=== PATIENT | male | born 1975 | race Caucasian/White ===

== ENCOUNTER 2021-05-11 23:17 | Inpatient (IN) ==
[2021-05-11] MEDS ORDERED: dexAMETHasone**PF** 10 MG/ML VIAL IV ONE (23:30)
[2021-05-11] MEDS ORDERED: SODIUM CHLORIDE 0.9% 1000ML 1,000 ML IV ONE (23:31)
[2021-05-11] MEDS ORDERED: ACETAMINOPHEN 500 MG TAB PO STA (23:31)
[2021-05-11] MEDS ORDERED: IBUPROFEN 800 MG TAB PO STA (23:47)
[2021-05-12 00:17] LABS: Hemoglobin 15.2 g/dL (14.0-18.0); Immature Granulocytes # (auto) 0.02 K/uL (0.00-0.02); Immature Granulocytes % (auto) 0.5 %; Lymphocytes # (auto) 0.44 K/uL (1.2-3.4); Lymphocytes % (auto) 11.6 %; Mean Corpuscular Hemoglobin 30.3 pg (25-34); Mean Corpuscular Hgb Conc 33.8 g/dL (32-36); Mean Corpuscular Volume 89.6 fL (80-100); Mean Platelet Volume 9.9 fL (7.4-10.4); Monocytes # (auto) 0.19 K/uL (0.11-0.59); Neutrophils # (auto) 3.14 K/uL (1.4-6.5); Neutrophils % (auto) 82.9 %; Platelet Count 146 K/uL (130-400); RDW Coefficient of Variation 12.4 % (11.5-14.5); RDW Standard Deviation 40.7 fL (36.4-46.3); Red Blood Count 5.02 M/uL (4.7-6.1); White Blood Count 3.79 K/uL (4.8-10.8)
[2021-05-12 00:29] LABS: INR 1.1 (0.9-1.1); Partial Thromboplastin Ratio 1.2; Partial Thromboplastin Time 30.8 Seconds (21.0-31.0); Prothrombin Time 11.4 Seconds (9.0-12.0)
[2021-05-12 00:49] LABS: Alanine Aminotransferase 53 U/L (12-78); Albumin Globulin Ratio 0.6 (0.9-2); Albumin Level 2.4 gm/dl (3.4-5.0); Alkaline Phosphatase 76 U/L (45-117); Aspartate Aminotransferase 122 U/L (15-37); BUN Creatinine Ratio 17.8 (10-20); Bilirubin,Total 0.5 mg/dl (0.2-1); Blood Urea Nitrogen 16 mg/dl (7-18); Calcium 8.2 mg/dl (8.5-10.1); Carbon Dioxide 26 mmol/L (21-32); Chloride 102 mmol/L (98-107); Est GFR (Non-African American) 100.1 ml/min; Globulin 4.2 gm/dl (2.5-4.0); Glucose 145 mg/dl (70-99); Magnesium 2.2 mg/dl (1.8-2.4); Potassium 3.5 mmol/L (3.5-5.1); Sodium 134 mmol/L (136-145); Total Protein 6.6 gm/dl (6.4-8.2); Troponin I < 0.015 ng/ml (0-0.045)
[2021-05-12] MEDS ORDERED: XOPENEX/ATROVENT 1.25mg/0.5MG NEB COMBO NEB ONE (01:04)
[2021-05-12] MEDS ORDERED: PATIENT'S HEIGHT AND/OR WEIGHT NEEDED STA (01:10)
[2021-05-12] MEDS ORDERED: LEVALBUTEROL 1.25MG/0.5ML NEB INH PRN (01:15)
[2021-05-12] MEDS ORDERED: dexAMETHasone 4 MG in SYRINGE 0 ML IV ONE (01:15)
[2021-05-12] MEDS ORDERED: IPRATROPIUM BROMIDE NEB SOLN 0.02% 2.5 ML VIAL INH PRN ×2 (01:15→05:29)
--- NOTE | 2021-05-12 01:18 | History & Physical Report ---
Date of Service May 12, 2021 Assessment & Plan (1) Pneumonia due to COVID-19 virus: Plan: Pneumonia due to COVID-19 virus with hypoxia/acute respiratory failure with hypoxia- Given dexamethasone 6 mg IV by the ED, will add additional 4 mg IV for total 10 mg IV in the ED Dexamethasone 6 mg IV every morning Xopenex/ Atrovent-nebulizers every 6 hours while awake and every 2 hours as needed Remdesivir IV per protocol Ceftriaxone 2 g IV daily Azithromycin 500 mg IV daily Presently on 10 L oxygen mask with pulse ox 89% and PO2 59% on ABG We will give a nebulizer treatment now, and changed to heated high flow (2) Hypoxia: Plan: See above (3) Acute respiratory failure with hypoxia: Plan: See above (4) Hypertension: Plan: Hold lisinopril History of Present Illness Chief Complaint: The patient presents to the emergency department with worsening shortness of breath and dyspnea on exertion, after being seen in the ED on 05/08, having been recently diagnosed with Covid 19 pneumonia, and refused admission at that time. Primary Care Provider: NO PCP The patient is a 46-year-old male with a past medical history including hypertension, who presents to the emergency department with symptoms as noted above. His symptoms initially again on May 04. Chest x-ray is consistent with multifocal pneumonia abnormal laboratories: AST 122, platelets 146, glucose 145. Temperature 39.1 Chest x-ray consistent with multifocal pneumonia From the ED patient received the following: Dexamethasone 6 mg IV, Tylenol 1 g p.o. Allergies Allergy/AdvReac Type Severity Reaction Status Date / Time codeine Allergy Hives Verified 05/12/21 00:48 oxycodone Allergy Hives Verified 05/12/21 00:48 Home Medications Medication Instructions Recorded Confirmed Type ibuprofen 200 mg tablet 800 mg PO Q8 PRN 05/12/21 05/12/21 History lisinopril 10 mg tablet 10 mg PO DAILY 05/12/21 05/12/21 History Past Med/Surg History Medical History (Updated 05/12/21 @ 02:20 by Marco A Kemp MD) Hypertension No acute medical problems Surgical History No pertinent past surgical history Social History Smoking Status: Never smoker Preferred Language: Persian Feels Safe at Home: Yes Review of Systems Review of Systems: The patient denies chest pain, palpitations, lower extremity swelling, sore throat, fevers, chills, sweats, nausea, vomiting, naya rrhea , constipation, abdominal pain, pelvic pain, blood in urine or stool, dysuria, urinary frequency or urgency, memory loss, loss of consciousness, rash, abnormal bruising or bleeding, imbalance, focal weakness, numbness or tingling in arms or legs, generalized arthralgias or myalgias, back or neck pain, or night sweats. The review of systems is otherwise negative other than for that already noted above, and at least 10 systems have been reviewed. Physical Exam Physical Exam: The patient is awake, alert and oriented 3, well developed and well nourished, normocephalic and atraumatic, lying in bed and in moderate acute respiratory distress on 10 L oxygen mask HEENT--PERRL, EOMI, mucous membranes and oropharynx normal Neck--supple. No JVD. No bruits. Thyroid normal, trachea midline, no adenopathy. Heart--normal S1 and S2. No murmurs, rubs or gallops. Lungs--coarse breath sounds bilaterally. Moderate respiratory distress with accessory muscle use. Abdomen--normal bowel sounds and soft. Nontender. Nondistended, no hernias or masses, no organomegaly. Extremities--no cyanosis or clubbing. No edema. Dermatologic--normal skin turgor, normal color, no abnormal lymph nodes, no rash. Neurologic--cranial nerves II through XII grossly intact. Rheumatologic--normal range of motion. Psychiatric--normal affect. Results & Data Results & Data ([facility]) Vital Signs (Past 12 Hours) Vital Signs Temp Pulse Resp BP Pulse Ox 05/11/21 23:24 39.1 C H 142 H 30 H 131/88 78 L Laboratory Results Laboratory Results WBC 3.79 K/uL (4.8-10.8) L 05/12/21 00:03 RBC 5.02 M/uL (4.7-6.1) 05/12/21 00:03 Hgb 15.2 g/dL (14.0-18.0) 05/12/21 00:03 Hct 45.0 % (42-52) 05/12/21 00:03 MCV 89.6 fL (80-100) 05/12/21 00:03 MCH 30.3 pg (25-34) 05/12/21 00:03 MCHC 33.8 g/dL (32-36) 05/12/21 00:03 RDW Std Deviation 40.7 fL (36.4-46.3) 05/12/21 00:03 RDW Coeff of Tiffanie 12.4 % (11.5-14.5) 05/12/21 00:03 Plt Count 146 K/uL (130-400) 05/12/21 00:03 MPV 9.9 fL (7.4-10.4) 05/12/21 00:03 Immature Gran % (Auto) 0.5 % 05/12/21 00:03 Neut % (Auto) 82.9 % 05/12/21 00:03 Lymph % (Auto) 11.6 % 05/12/21 00:03 [place] % (Auto) 5.0 % 05/12/21 00:03 Eos % (Auto) 0.0 % 05/12/21 00:03 Baso % (Auto) 0.0 % 05/12/21 00:03 Neut # (Auto) 3.14 K/uL (1.4-6.5) 05/12/21 00:03 Lymph # (Auto) 0.44 K/uL (1.2-3.4) L 05/12/21 00:03 [place] # (Auto) 0.19 K/uL (0.11-0.59) 05/12/21 00:03 Eos # (Auto) 0.00 K/uL (0-0.5) 05/12/21 00:03 Baso # (Auto) 0.00 K/uL (0-0.2) 05/12/21 00:03 Immature Gran # (Auto) 0.02 K/uL (0.00-0.02) 05/12/21 00:03 PT 11.4 Seconds (9.0-12.0) 05/12/21 00:03 INR 1.1 (0.9-1.1) 05/12/21 00:03 APTT 30.8 Seconds (21.0-31.0) 05/12/21 00:03 PTT Ratio 1.2 05/12/21 00:03 Sodium 134 mmol/L (136-145) L 05/12/21 00:03 Potassium 3.5 mmol/L (3.5-5.1) 05/12/21 00:03 Chloride 102 mmol/L (98-107) 05/12/21 00:03 Carbon Dioxide 26 mmol/L (21-32) 05/12/21 00:03 Anion Gap 6.0 (3-11) 05/12/21 00:03 BUN 16 mg/dl (7-18) 05/12/21 00:03 Creatinine 0.92 mg/dl (0.6-1.4) 05/12/21 00:03 Est Cr Clr Drug Dosing Not Reportable 05/12/21 00:03 Est GFR ( Amer) 116.0 ml/min 05/12/21 00:03 Est GFR (Non-Af Amer) 100.1 ml/min 05/12/21 00:03 BUN/Creatinine Ratio 17.8 (10-20) 05/12/21 00:03 Glucose 145 mg/dl (70-99) H 05/12/21 00:03 Lactate 1.5 mmol/L (0.4-2.0) 05/12/21 00:03 Calcium 8.2 mg/dl (8.5-10.1) L 05/12/21 00:03 Magnesium 2.2 mg/dl (1.8-2.4) 05/12/21 00:03 Total Bilirubin 0.5 mg/dl (0.2-1) 05/12/21 00:03 AST 122 U/L (15-37) H 05/12/21 00:03 ALT 53 U/L (12-78) 05/12/21 00:03 Alkaline Phosphatase 76 U/L (45-117) 05/12/21 00:03 Troponin I < 0.015 ng/ml (0-0.045) 05/12/21 00:03 Total Protein 6.6 gm/dl (6.4-8.2) 05/12/21 00:03 Albumin 2.4 gm/dl (3.4-5.0) L 05/12/21 00:03 Globulin 4.2 gm/dl (2.5-4.0) H 05/12/21 00:03 Albumin/Globulin Ratio 0.6 (0.9-2) L 05/12/21 00:03 Procalcitonin 0.09 ng/ml (0-0.5) 05/12/21 00:03 Specimen Hemolysis 05/12/21 00:03 Code Status & VTE Plan Code Status Full code VTE Prophylaxis Plan VTE Prophylaxis will be ordered: Yes PG Care Time/CCT Total # of Minutes Spent Total Time Spent with Patient: Total time spent is greater than 50% in coordination of care (as documented) at patient's floor/unit and/or counseling patient: Coding Level of Care Code 25283 Initial Inpt Care Lvl 3 Diagnoses Pneumonia due to COVID-19 virus U07.1; J12.82 Hypoxia R09.02 Acute respiratory failure with hypoxia J96.01 Hypertension I10
[2021-05-12] MEDS ORDERED: REMDESIVIR 200 MG in SODIUM CHLORIDE 0.9% 210 ML IV ONE (01:30)
[2021-05-12] MEDS ORDERED: cefTRIAXone SODIUM 2,000 MG in DEXTROSE 5% 50 ML IV STA (01:56)
[2021-05-12] MEDS ORDERED: AZITHROMYCIN 500 MG in DEXTROSE 5% 250 ML IV ONE (02:30)
--- NOTE | 2021-05-12 02:57 | Emergency Department Note ---
History of Present Illness General Chief complaint: Shortness of Breath/Dyspnea Stated complaint: COVID+, PULSE OX 72, SOB History of Present Illness Maximum Pain Intensity: 7 This 46-year-old unvaccinated for Covid who tested positive on the of this month presents to the ER complaining of worsening breathing and low pulse ox who was seen by myself a few days ago Location: Generalized Quality: Hard to breathe Severity: Moderate Duration: Past week Timing: Started May 04 Context: Patient's pulse ox was in the 70s at home and came in Modifying factors: better with oxygen; worse with activity Patient states he feels miserable. Patient complains of feeling short of breath body aches and pains and generalized illness. Patient denies abdominal pain, vomiting, diarrhea. Home Medications Medication Instructions Recorded Confirmed Type ibuprofen 200 mg tablet 800 mg PO Q8 PRN 05/12/21 05/12/21 History lisinopril 10 mg tablet 10 mg PO DAILY 05/12/21 05/12/21 History Allergies Allergy/AdvReac Type Severity Reaction Status Date / Time codeine Allergy Hives Verified 05/12/21 00:48 oxycodone Allergy Hives Verified 05/12/21 00:48 Past Med/Surg History Medical History Hypertension No acute medical problems Surgical History No pertinent past surgical history Social History Smoking Status: Never smoker Preferred Language: Turkish Feels Safe at Home: Yes Review of Systems A total of 10 systems reviewed and were otherwise negative Physical Exam Vital Signs Vital Signs - 24 hr 05/11/21 23:24 05/11/21 23:47 05/12/21 00:16 Temperature 39.1 C H 38.2 C H Temperature Source Temporal Artery Scan Oral Pulse Rate 142 H Respiratory Rate 30 H Respiratory Effort / Characteristics Non-Labored Spontaneous Respiratory Depth Normal Respiratory Pattern Regular Blood Pressure 131/88 Blood Pressure Mean 102 Blood Pressure Position Sitting Pulse Oximetry 78 L Oxygen Delivery Method Room Air Oxymask Oxygen Flow Rate 10 Fraction of Inspired Oxygen Sepsis Recent Fever Within 48 Hours Yes Sepsis New/Unexplained Change in Mental Status N/A Sepsis Action Taken by Nursing Physician Notified 05/12/21 01:34 05/12/21 01:42 05/12/21 02:06 Temperature Temperature Source Pulse Rate 124 H Respiratory Rate 22 Respiratory Effort / Characteristics Spontaneous Short of Breath Spontaneous Short of Breath Respiratory Depth Respiratory Pattern Blood Pressure Blood Pressure Mean Blood Pressure Position Pulse Oximetry 91 95 94 Oxygen Delivery Method Oxymask High Flow Nasal Cannula Oxymask Oxygen Flow Rate 10 40 10 Fraction of Inspired Oxygen 90 Sepsis Recent Fever Within 48 Hours Sepsis New/Unexplained Change in Mental Status Sepsis Action Taken by Nursing 05/12/21 02:07 Temperature Temperature Source Pulse Rate Respiratory Rate Respiratory Effort / Characteristics Non-Labored Respiratory Depth Respiratory Pattern Blood Pressure Blood Pressure Mean Blood Pressure Position Pulse Oximetry 94 Oxygen Delivery Method Oxymask Oxygen Flow Rate 10 Fraction of Inspired Oxygen Sepsis Recent Fever Within 48 Hours Sepsis New/Unexplained Change in Mental Status Sepsis Action Taken by Nursing VITALS: Vitals are noted on the nurse's note and reviewed by myself. Vital signs hypoxic on room air and patient was placed on nasal cannula and then Lars mask GENERAL: White male ill-appearing working to breathe sats in the 70s, SKIN: The skin was without rashes, erythema, edema, or bruising. There is no tenting of the skin. Capillary reflex less than 2 seconds. HEAD: Normocephalic atraumatic. EARS: External auditory canals clear, tympanic membranes pearly ramires without erythema or effusion bilaterally. EYES: Pupils equal round and reactive to light and accommodation. Conjunctivae without injection, sclerae without icterus. Extraocular movements intact. NOSE: Patent, turbinates without inflammation or discharge. No sinus tenderness. MOUTH: Mucous membranes mildly dry pharynx without erythema or exudate. Uvula midline. Airway patent. Tongue does not deviate. NECK: Supple without nuchal rigidity. No lymphadenopathy. No thyromegaly. Cervical spine is nontender. No JVD. HEART: Regular rate and rhythm LUNGS: Mild diffuse end expiratory wheezes, No retractions or accessory muscle use. ABDOMEN: Positive bowel sounds x 4. Normal tympanic percussion. Soft, nontender, without masses or organomegaly. Stevens sign negative. No guarding or rebound tenderness. No CVA tenderness MUSCULOSKELETAL: No muscle atrophy, erythema, or edema noted. NEURO: Patient was alert and oriented to person place and time. Normal sensation to light and sharp touch. No focal neurological deficits. Course Administered Medications Remdesivir 200 mg/ Sodium (Chloride) 250 mls @ 125 mls/hr IV ONE ONE; Protocol Stop: 05/12/21 03:29 Last Admin: 05/12/21 01:29 Dose: 125 mls/hr Documented by: [id number] Discontinued Medications Acetaminophen (Acetaminophen 500 Mg Tab) 1,000 mg PO NOW STA Stop: 05/11/21 23:32 Last Admin: 05/12/21 01:25 Dose: 1,000 mg Documented by: [id number] Dexamethasone Sodium Phosphate (DexamethasonePf 10 Mg/Ml Vial) 6 mg IV NOW ONE Stop: 05/11/21 23:31 Last Admin: 05/12/21 00:34 Dose: 6 mg Documented by: [id number] Sodium Chloride (Nss 1000ml) 1,000 mls @ 999 mls/hr IV .Q1H1M ONE Stop: 05/12/21 00:31 Last Admin: 05/12/21 00:34 Dose: 999 mls/hr Documented by: [id number] Dexamethasone 4 mg/ Syringe 1 mls @ 1 mls/min IV ONE ONE Stop: 05/12/21 01:16 Last Admin: 05/12/21 01:25 Dose: 1 mls/min Documented by: [id number] Ceftriaxone Sodium 2,000 mg/ (Dextrose) 70 mls @ 100 mls/hr IV NOW STA; Protocol Stop: 05/12/21 02:37 Last Admin: 05/12/21 02:36 Dose: 100 mls/hr Documented by: [id number] Ibuprofen (Ibuprofen 800 Mg Tab) 800 mg PO NOW STA Stop: 05/11/21 23:48 Last Admin: 05/12/21 01:25 Dose: 800 mg Documented by: [id number] Miscellaneous (Xopenex/Atrovent 1.25mg/0.5mg Neb Combo) 1 ea NEB ONE ONE Stop: 05/12/21 01:05 Last Admin: 05/12/21 01:32 Dose: 1 ea Documented by: [id number] Miscellaneous (Patient's Height And/Or Weight Needed) 1 ea N/A NOW STA Stop: 05/12/21 01:11 Last Admin: 05/12/21 01:38 Dose: 1 ea Documented by: [id number] Medical Decision Making Medical Records Attestation: I reviewed the patient's medical records. Home Medications Current Medication List: was personally reviewed by me Laboratory Data Attestation: I reviewed the patient's lab results. Result diagrams: 05/12/21 00:03 05/12/21 00:03 Lab Results 05/12/21 05/12/21 05/12/21 Range/Units 00:03 00:03 00:03 WBC 3.79 L (4.8-10.8) K/uL RBC 5.02 (4.7-6.1) M/uL Hgb 15.2 (14.0-18.0) g/dL Hct 45.0 (42-52) % MCV 89.6 (80-100) fL MCH 30.3 (25-34) pg MCHC 33.8 (32-36) g/dL RDW Std Deviation 40.7 (36.4-46.3) fL RDW Coeff of Tiffanie 12.4 (11.5-14.5) % Plt Count 146 (130-400) K/uL MPV 9.9 (7.4-10.4) fL Immature Gran % (Auto) 0.5 % Neut % (Auto) 82.9 % Lymph % (Auto) 11.6 % [place] % (Auto) 5.0 % Eos % (Auto) 0.0 % Baso % (Auto) 0.0 % Neut # (Auto) 3.14 (1.4-6.5) K/uL Lymph # (Auto) 0.44 L (1.2-3.4) K/uL [place] # (Auto) 0.19 (0.11-0.59) K/uL Eos # (Auto) 0.00 (0-0.5) K/uL Baso # (Auto) 0.00 (0-0.2) K/uL Immature Gran # (Auto) 0.02 (0.00-0.02) K/uL PT 11.4 (9.0-12.0) Seconds INR 1.1 (0.9-1.1) APTT 30.8 (21.0-31.0) Seconds PTT Ratio 1.2 Sodium 134 L (136-145) mmol/L Potassium 3.5 (3.5-5.1) mmol/L Chloride 102 (98-107) mmol/L Carbon Dioxide 26 (21-32) mmol/L Anion Gap 6.0 (3-11) BUN 16 (7-18) mg/dl Creatinine 0.92 (0.6-1.4) mg/dl Est Cr Clr Drug Dosing Not Reportable Est GFR ( Amer) 116.0 ml/min Est GFR (Non-Af Amer) 100.1 ml/min BUN/Creatinine Ratio 17.8 (10-20) Glucose 145 H (70-99) mg/dl Lactate (0.4-2.0) mmol/L Calcium 8.2 L (8.5-10.1) mg/dl Magnesium 2.2 (1.8-2.4) mg/dl Total Bilirubin 0.5 (0.2-1) mg/dl AST 122 H (15-37) U/L ALT 53 (12-78) U/L Alkaline Phosphatase 76 (45-117) U/L Troponin I < 0.015 (0-0.045) ng/ml Total Protein 6.6 (6.4-8.2) gm/dl Albumin 2.4 L (3.4-5.0) gm/dl Globulin 4.2 H (2.5-4.0) gm/dl Albumin/Globulin Ratio 0.6 L (0.9-2) Procalcitonin (0-0.5) ng/ml Specimen Hemolysis 05/12/21 05/12/21 Range/Units 00:03 00:03 WBC (4.8-10.8) K/uL RBC (4.7-6.1) M/uL Hgb (14.0-18.0) g/dL Hct (42-52) % MCV (80-100) fL MCH (25-34) pg MCHC (32-36) g/dL RDW Std Deviation (36.4-46.3) fL RDW Coeff of Tiffanie (11.5-14.5) % Plt Count (130-400) K/uL MPV (7.4-10.4) fL Immature Gran % (Auto) % Neut % (Auto) % Lymph % (Auto) % [place] % (Auto) % Eos % (Auto) % Baso % (Auto) % Neut # (Auto) (1.4-6.5) K/uL Lymph # (Auto) (1.2-3.4) K/uL [place] # (Auto) (0.11-0.59) K/uL Eos # (Auto) (0-0.5) K/uL Baso # (Auto) (0-0.2) K/uL Immature Gran # (Auto) (0.00-0.02) K/uL PT (9.0-12.0) Seconds INR (0.9-1.1) APTT (21.0-31.0) Seconds PTT Ratio Sodium (136-145) mmol/L Potassium (3.5-5.1) mmol/L Chloride (98-107) mmol/L Carbon Dioxide (21-32) mmol/L Anion Gap (3-11) BUN (7-18) mg/dl Creatinine (0.6-1.4) mg/dl Est Cr Clr Drug Dosing Est GFR ( Amer) ml/min Est GFR (Non-Af Amer) ml/min BUN/Creatinine Ratio (10-20) Glucose (70-99) mg/dl Lactate 1.5 (0.4-2.0) mmol/L Calcium (8.5-10.1) mg/dl Magnesium (1.8-2.4) mg/dl Total Bilirubin (0.2-1) mg/dl AST (15-37) U/L ALT (12-78) U/L Alkaline Phosphatase (45-117) U/L Troponin I (0-0.045) ng/ml Total Protein (6.4-8.2) gm/dl Albumin (3.4-5.0) gm/dl Globulin (2.5-4.0) gm/dl Albumin/Globulin Ratio (0.9-2) Procalcitonin 0.09 (0-0.5) ng/ml Specimen Hemolysis Imaging Data Attestation: I personally reviewed and interpreted this imaging study as follows: MDM Narrative Prior records/ancillary studies reviewed. Triage Nursing notes reviewed. Additional history obtained from nursing. The patient's history was concerning for cold symptoms Differential diagnosis: Etiologies such as viral syndrome, pharyngitis, Covid, sepsis, bacteremia, bronchitis, allergies, otitis, pneumonia, influenza, as well as others were entertained. ER treatment provided: Oxygen, Decadron On reassessment the patient felt better. Diagnostics interpreted by me: The labs revealed leukopenia consistent with known Covid infection, VBG was reviewed Imaging studies: Chest x-ray concerning for multiple patchy infiltrates concerning Covid pneumonia per my interpretation Consultation: A consultation was placed with hospitalist. Medicine will admit. This appears to be consistent with Covid pneumonia who is hypoxic. Patient was given Decadron. He was placed on oxygen. He was given Tylenol Motrin. Medicine was consulted. He will be admitted. He was reassessed multiple times. By the evaluation outlined above emergent etiologies such as otitis, meningitis, urinary tract infection, sepsis, bacteremia, as well as others were deemed relatively unlikely. The pt informed about the findings as listed above. All questions were answered and pleased with the treatment. The chart was completed utilizing [employer] Speech voice recognition software. Grammatical errors, random word insertions, pronoun errors, and incomplete sentences are an occassional consequence of this system due to software limitations, ambient noise, and hardware issues. Any formal questions or concerns about the content, text, or information contained within the body of this dictation should be directly addressed to the physician perioperative assistant for clarification. Impression & Plan COVID-19, Hypoxia, Acute respiratory failure with hypoxia Discharge Plan Visit Data Chief Complaint: Shortness of Breath/Dyspnea Stated Complaint: COVID+, PULSE OX 72, SOB ED Provider: Pat Yuan ED Midlevel Provider: Asia Knutson Discharge Problem: COVID-19, Hypoxia, Acute respiratory failure with hypoxia Patient Disposition: Admitted As Inpatient Condition: Fair Forms Stand Alone Forms: [facility] Prescriptions Prescriptions: No Action lisinopril 10 mg tablet 10 mg PO DAILY RF: 0 ibuprofen 200 mg Tablet 800 mg PO Q8 PRN (Reason: Fever Or Pain) RF: 0 Referrals Referrals: PCP,NO [Primary Care Provider] -
[2021-05-12] MEDS: SODIUM CHLORIDE 0.9% 10ML FLUSH IV SCH ×2 (04:29→20:22)
[2021-05-12] MEDS ORDERED: ONDANSETRON INJ 2 MG/ML 2 ML VIAL IV PRN (05:20)
[2021-05-12] MEDS ORDERED: NSS + 20MEQ KCL 20 MEQ/1,000 ML BAG IV SCH (06:00)
[2021-05-12] MEDS ORDERED: XOPENEX/ATROVENT 1.25mg/0.5MG NEB COMBO NEB SCH (07:00)
[2021-05-12] MEDS: IPRATROPIUM BROMIDE NEB SOLN 0.02% 2.5 ML VIAL INH SCH ×3 (07:56→20:08)
[2021-05-12] MEDS: LEVALBUTEROL 1.25MG/0.5ML NEB INH SCH ×3 (07:57→20:09)
--- NOTE | 2021-05-12 08:05 | XRay Report ---
XR chest 1V portable CLINICAL HISTORY: SEPSIS. Fever and shortness of breath COMPARISON STUDY: No previous studies for comparison. TECHNIQUE: 1 view of the chest FINDINGS: Single frontal view of the chest demonstrates the cardiomediastinal silhouette to be within normal li mits. Extensive patchy interstitial and alveolar opacities are present bilaterally. The findings are most characteristic of a viral type pneumonitis. Covid 19 pneumonia should be excluded. There is no e vidence for pleural effusion. There is no evidence for vascular congestion. There is no acute osseous pathology. IMPRESSION: Extensive patchy interstitial and alveolar opacities bilaterally characteristic of a ludy l type pneumonitis and probable Covid 19 pneumonia. ACT 112: Negative or not required by law. Electronically signed by: Saurabh Aragon M.D. 05/12/2021 8:04 AM
[2021-05-12] MEDS: dexAMETHasone 6 MG in SYRINGE 0 ML IV SCH (09:56)
--- NOTE | 2021-05-12 09:59 | Hospitalist Progress Note ---
Date of Service May 12, 2021 Assessment & Plan (1) Pneumonia due to COVID-19 virus: Plan: Pneumonia due to COVID-19 virus with hypoxia/acute respiratory failure with hypoxia- Given dexamethasone 6 mg IV by the ED, will add additional 4 mg IV for total 10 mg IV in the ED Dexamethasone 6 mg IV every morning Xopenex/ Atrovent-nebulizers every 6 hours while awake and every 2 hours as needed Remdesivir IV per protocol Ceftriaxone 2 g IV daily Azithromycin 500 mg IV daily Presently Vapotherm 40 L 100% on 05/12/2021 (2) Hypoxia: Plan: See above (3) Acute respiratory failure with hypoxia: Plan: See above (4) Hypertension: Plan: Resume lisinopril Admission and Anticipated Discharge Date Admission Date: May 12, 2021 Subjective Patient is proning when I entered the room he is very little complaints he is on 40 L on a percent so significant oxygen supplementation at this time he is got nonproductive cough his examination is consistent with Covid pneumonia Review of Systems Review of Systems: Moderate distress and fatigue no headache, no visual changes no speech or swallowing issues no chest pain, pressure or palpitations Significant shortness of breath, nonproductive cough no abdominal pain, nausea or vomiting, but is having diarrhea no dysuria, hematuria or frequency no focal joint pain or swelling no back pain, CVA tenderness or radicular pain no bruising, bleeding or rashes no focal signs of weakness or numbness or altered sensation no complaints of anxiety or depression.. Physical Exam Physical Exam: The patient appeared significantly ill Vital signs as documented. Significant hypoxemia Head exam is normocephalic atraumatic Neck is without JVD, thyromegaly, or carotid bruits. Lungs rales in all lung zones accessory muscle use of breathing Cardiac exam, Rhythm is regular.. No murmurs, rubs or gallops. Abdominal exam reveals normal bowel sounds, soft non tender, no masses Extremities are nonedematous and both pedal pulses are present Neurologic exam is alert and oriented, no focal loss of strength or sensation Skin is without bruises or rashes Psychologically is without concerns for anxiety or depression.. Results & Data Results & Data ([facility]) Vital Signs (Past 12 Hours) Vital Signs Temp Pulse Pulse Resp BP BP Pulse Ox 05/12/21 08:08 98.2 F 93 H 20 148/94 H 91 05/12/21 07:58 94 H 18 90 05/12/21 05:22 99.0 F 98 H 26 H 139/86 91 05/12/21 05:20 99.0 F 88 26 H 139/86 93 05/12/21 05:19 99.0 F 95 H 26 H 139/86 94 05/12/21 05:10 102 H 24 92 05/12/21 04:50 93 H 20 126/92 91 05/12/21 02:07 94 05/12/21 02:06 124 H 22 94 05/12/21 01:42 95 05/12/21 01:34 91 05/11/21 23:47 100.8 F H 05/11/21 23:24 102.4 F H 142 H 30 H 131/88 78 L Pulse Ox 05/12/21 08:08 05/12/21 07:58 05/12/21 05:22 05/12/21 05:20 92 05/12/21 05:19 05/12/21 05:10 05/12/21 04:50 05/12/21 02:07 05/12/21 02:06 05/12/21 01:42 05/12/21 01:34 05/11/21 23:47 05/11/21 23:24 PG Care Time/CCT Total # of Minutes Spent Total Time Spent with Patient: Total time spent is greater than 50% in coordination of care (as documented) at patient's floor/unit and/or counseling patient: Coding Level of Care Code 02572 Subseq Hosp Care Lvl 2 Diagnoses Pneumonia due to COVID-19 virus U07.1; J12.82 Hypoxia R09.02 Acute respiratory failure with hypoxia J96.01 Hypertension I10
[2021-05-12] MEDS ORDERED: SODIUM CHLORIDE 0.9% 10ML FLUSH IV SCH (13:00)
--- NOTE | 2021-05-12 13:22 | Electrocardiogram Report ---
Test Reason : Blood Pressure : / mmHG Vent. Rate : 130 BPM Atrial Rate : 130 BPM P-R Int : 128 ms QRS Dur : 082 ms QT Int : 312 ms P-R-T Axes : 040 -14 -18 degrees QTc Int : 459 ms Sinus tachycardia Possible Left atrial enlargement Left ventricular hypertrophy Nonspecific ST abnormality Abnormal ECG No previous ECGs available Confirmed by Juaquin Schwarz ([id number]) on 05/12/2021 1:22:29 PM Referred By: REFERRED SELF Confirmed By:Craig Schwarz
[2021-05-12] MEDS: REMDESIVIR 100 MG in SODIUM CHLORIDE 0.9% 230 ML IV SCH (20:21)
[2021-05-12] MEDS ORDERED: guaiFENesin/CODEINE 100MG/10MG 5ML UDC PO PRN (22:49)
[2021-05-12] MEDS ORDERED: BENZONATATE 100 MG CAPSULE PO SCH (23:00)
[2021-05-13] MEDS: IPRATROPIUM BROMIDE NEB SOLN 0.02% 2.5 ML VIAL INH SCH ×3 (00:31→13:23)
[2021-05-13] MEDS: LEVALBUTEROL 1.25MG/0.5ML NEB INH SCH ×3 (00:31→13:23)
[2021-05-13] MEDS: cefTRIAXone SODIUM 2,000 MG in DEXTROSE 5% 50 ML IV SCH ×2 (02:07→08:16)
[2021-05-13] MEDS: AZITHROMYCIN 500 MG in DEXTROSE 5% 250 ML IV SCH (02:08)
[2021-05-13 08:07] LABS: Basophils # (auto) 0.01 K/uL (0-0.2); Basophils % (auto) 0.1 %; Hematocrit (blood only) 44.2 % (42-52); Hemoglobin 14.7 g/dL (14.0-18.0); Immature Granulocytes # (auto) 0.06 K/uL (0.00-0.02); Immature Granulocytes % (auto) 0.7 %; Lymphocytes # (auto) 0.64 K/uL (1.2-3.4); Lymphocytes % (auto) 7.7 %; Mean Corpuscular Hemoglobin 30.1 pg (25-34); Mean Corpuscular Hgb Conc 33.3 g/dL (32-36); Mean Corpuscular Volume 90.6 fL (80-100); Mean Platelet Volume 9.8 fL (7.4-10.4); Monocytes # (auto) 0.66 K/uL (0.11-0.59); Monocytes % (auto) 7.9 %; Neutrophils # (auto) 6.99 K/uL (1.4-6.5); Neutrophils % (auto) 83.6 %; Platelet Count 215 K/uL (130-400); RDW Coefficient of Variation 12.5 % (11.5-14.5); Red Blood Count 4.88 M/uL (4.7-6.1); White Blood Count 8.36 K/uL (4.8-10.8)
[2021-05-13] MEDS: dexAMETHasone 6 MG in SYRINGE 0 ML IV SCH ×2 (08:31→21:46)
[2021-05-13 08:57] LABS: Albumin Globulin Ratio 0.5 (0.9-2); Albumin Level 2.2 gm/dl (3.4-5.0); BUN Creatinine Ratio 18.9 (10-20); Bilirubin,Total 0.4 mg/dl (0.2-1); C Reactive Protein 6.55 mg/dl (0-0.29); Calcium 8.2 mg/dl (8.5-10.1); Creatinine Clr Calc Pharmacy 112.7 ml/min; Est GFR (African American) 110.2 ml/min; Est GFR (Non-African American) 95.1 ml/min; Globulin 4.3 gm/dl (2.5-4.0); Potassium 4.1 mmol/L (3.5-5.1); Total Protein 6.5 gm/dl (6.4-8.2)
[2021-05-13] MEDS ORDERED: guaiFENesin 600 MG TABCR PO SCH (09:00)
[2021-05-13] MEDS ORDERED: lisinopril 5 MG TAB PO SCH (09:00)
[2021-05-13 09:16] LABS: iSTAT Arterial Blood Gas HCO3 26 meg/L (19-24); iSTAT Arterial Blood Gas pCO2 34 mmHg (35-46); iSTAT Arterial Blood Gas pH 7.49 (7.35-7.45); iSTAT Arterial Blood Gas pO2 59 mmHg (80-95); iSTAT Carbon Dioxide 34 mmol/L (24-31); iSTAT Hematocrit 41 % (42-52); iSTAT Hemoglobin 13.9 g/dl (14.0-18.0); iSTAT Potassium 3.2 mmol/L (3.3-5.0); iSTAT Sodium 136 mmol/L (135-144)
--- NOTE | 2021-05-13 14:41 | Pulmonary Consultation ---
Date of Consultation May 13, 2021 Assessment & Plan (1) Pneumonia due to COVID-19 virus: Neuro - Fatigued appearing, no focal deficits- no acute needs Cardiac - HTN BP <140 - skin warm and dry with good perfusion, no evidence of shock - Continue his Lisinopril as you are doing, with monitoring of renal labs as you are doing Respiratory - Hypoxia with Respiratory failure, COVID 19 pneumonia - Continue supportive care at this time with Remdisivir, nebulizers - Patient would want intubated if refractory hypoxia and or resp/cardiac arrest- He would like to continue with BiPAP at this time, and as he is responding and continuing to self prone feel this is reasonable at this time - Not a candidate for Tozci at this time - Could increase steroid dosing to 10-12 mg- however if CRP would increase tomorrow and candidate for Tozci then would need decreased back to 6mg - ABX: recommend: Continue Azithromycin- discontinuing of Ceftriaxone- normal WBC, no fever- repeat CRP and PCT in morning - Recommend Lasix 20mg IV GI - No acute needs- recommend adding PPI with high dose steroids RENAL/LYTES - - No acute needs- continue to follow - Follow with diuretics and Remdisivir - No acute needs ENDO - Follow BG with corticosteroid dosing HEME - DVT Prophy - Lovenox 40mg Subq BID- continue ID - COVID 19 PNA, ? co-infection- no elevation of WBC, PCT in morning with CRP - Blood cultures with NGTD - Continue Azithromycin - Recommned stopping Rocephin DVT PROPHYLAXIS - As above Thank you for allowing us to participate in the care of this patient. Please refer to my attending physician's documentation for any further recommendations (2) Hypoxia: (3) Acute respiratory failure with hypoxia: (4) Hypertension: Supervising Physician Co-Signing Physician Notes Patient seen and examined with CONSTANTIN. Agree with plan as outlined above. Would recommend discontinuing Rocephin at this time as no clear evidence of superimpo sed bacterial pneumonia. We will repeat a chest x-ray today. Will increase Decadron to 6 mg twice daily. He is at the threshold for considering tocilizumab or baricitinib. Recommend rechecking CRP tomorrow. He has been vacillating between high flow nasal cannula and BiPAP therapy. We will continue to monitor. Proning encouraged. History of Present Illness Reason for Consultation: COVID 19 hypoxia with respiratory failure Requesting Physician: Aiden Slaughter Attending Physician: Aiden Slaughter MD History of Present Illness 46 YOM with no PCP and only prescribed Lisinopril as outpatient for HTN. Patient is 6 days from positive test for COVID and his HD #1 following admission for COVID 19. The patient is unvaccinated. Patient denies smoking history of other pulmonary disease or use of inhalers at home. Patient is on BiPAP 05/20 with FIO2 80-90% with reported desaturations to low 80s when removed. The patient SPO2 on the BiPAP and resting in bed was 97% on my evaluation. The patient appears tired, but not severely tachypneic or use of accessory muscles on exam. The patient states he feels ok with the mask on. We did discuss therapeutic options to include tocilizumab if his CRP was to elevate, as well as intubation. Patient does not wish to be intubated unless it was emergently for hypoxia. He does state that he would rather optimize the BiPAP mask and continue its support as he feels it is making his breathing easier. The patient is self rotating and proning. He remains on scheduled levalbuterol/ipratropium nebulizers, Decadron, and Remdesivir, Azithromycin and Rocephin. His film from admission was reviewed. Labs reviewed. BLood cultures remain with NGTD. Allergies Allergy/AdvReac Type Severity Reaction Status Date / Time codeine Allergy Hives Verified 05/12/21 00:48 oxycodone Allergy Hives Verified 05/12/21 00:48 Home Medications Medication Instructions Recorded Confirmed Type ibuprofen 200 mg tablet 800 mg PO Q8 PRN 05/12/21 05/12/21 History lisinopril 10 mg tablet 10 mg PO DAILY 05/12/21 05/12/21 History Patient History Medical History Hypertension No acute medical problems Surgical History No pertinent past surgical history Social History Smoking Status: Never smoker Second Hand Exposure: No; Hx Alcohol Use: Yes Hx Substance Use: No Preferred Language: Bulgarian Communication Ability: Effective Sanitation Lead Required: No Beliefs That Will Affect Care: None Current Living Situation: Spouse and Family Current Living Situation Comment: Lives w/ spouse and 2 kids Feels Safe at Home: Yes Assistive Devices: Oxygen - Continuous Review of Systems Review of Systems: REVIEW OF SYSTEMS: Constitutional: (+) fever, sweats or chills Eyes: No diplopia, no worsening or blurred vision ENT: normal hearing, no trouble swallowing Respiratory: (+)cough, dyspnea at rest or on exertion, no sputum Cardiovascular: No chest pain, tightness or palpitations Abdomen: No pain, nausea, vomiting, diarrhea or constipation Musculoskeletal:(+) bodyaches, NO calf pain, swelling Neurologic: No weakness, numbness/tingling, or balance problems Psychiatric: No anxiety or depression Skin: No rash or itch Physical Exam Physical Exam: PHYSICAL EXAM: General: awake, alert, fatigued appering Head: Normocephalic, atraumatic ENT: PERRL, EOMI, no pharyngeal exudate, mucous membranes moist Neuro: AAO x 3, speech clear and appropriate, strength intact bilaterally 5/5, sensation intact and equal all extremities and dermatomes, no pronator drift Chest: equal rise and fall of the chest, no accessory muscle use, no heaves or thrills, diminished breath sounds throughout with scattered rhonchi- diffuclt exam with disposable stehtescope and BiPAP Cardiac: Regular rate and rhythm, telemetry reviewed- NSR no ectopy, skin warm dry, cap refill <3 seconds, peripheral pulses +2 no JVD, no murmur, no edema GI: NABS x 4 quadrants, soft, nontender to palpation, no rebound, guarding or tenderness : Spontaneously voiding, no pain, no CVA tenderness, Extremities: Normal inspection, no peripheral edema or erythema, calfs nontender to palpation Psych: Normal mood and affect Skin: no rash or erythema Results & Data Results & Data ([facility]) Vital Signs (Past 12 Hours) Vital Signs Temp Pulse Pulse Resp BP Pulse Ox Pulse Ox 05/13/21 11:44 36.8 C 88 20 134/81 97 05/13/21 11:13 94 H 24 100 05/13/21 09:20 89 99 05/13/21 08:43 108 H 26 H 90 12/01/21 08:29 91 H 22 97 05/13/21 08:00 83 05/13/21 07:46 36.9 C 91 H 19 144/99 H 94 05/13/21 06:21 97 H 05/13/21 05:20 36.8 C 96 H 16 142/95 H 95 92 05/13/21 02:30 92 H 25 H 93 Laboratory Results Abnormal lab results 05/12/21 05/13/21 05/13/21 Range/Units 00:17 07:14 07:14 POC Hgb 13.9 L (14.0-18.0) g/dl POC Hct 41 L (42-52) % Neut # (Auto) 6.99 H (1.4-6.5) K/uL Lymph # (Auto) 0.64 L (1.2-3.4) K/uL Isabela # (Auto) 0.66 H (0.11-0.59) K/uL Immature Gran # (Auto) 0.06 H (0.00-0.02) K/uL POC pH 7.49 H (7.35-7.45) POC pCO2 34 L (35-46) mmHg POC pO2 59 L (80-95) mmHg POC HCO3 26 H (19-24) ejremy/L POC Total CO2 34 H (24-31) mmol/L POC Base Excess 2.0 H (-9-1.8) jeremy/L POC Potassium 3.2 L (3.3-5.0) mmol/L Glucose 137 H (70-99) mg/dl Calcium 8.2 L (8.5-10.1) mg/dl AST 85 H (15-37) U/L C-Reactive Protein 6.55 H (0-0.29) mg/dl Albumin 2.2 L (3.4-5.0) gm/dl Globulin 4.3 H (2.5-4.0) gm/dl Albumin/Globulin Ratio 0.5 L (0.9-2) Medications Administered Home Medications ibuprofen 200 mg tablet 800 mg PO Q8 PRN 05/12/21 [History Confirmed 05/12/21] lisinopril 10 mg tablet 10 mg PO DAILY 05/12/21 [History Confirmed 05/12/21] Active Medications Acetaminophen (Acetaminophen 325 Mg Tab) 650 mg PO Q4H PRN PRN Reason: Pain or Fever Stop: 12/30/21 05:19 Ceftriaxone Sodium 2,000 mg/ (Dextrose) 70 mls @ 100 mls/hr IV DAILY [facility]; Protocol Stop: 05/20/21 01:59 Last Infusion: 05/13/21 09:19 Dose: Infused Documented by: Azithromycin 500 mg/ Dextrose 255 mls @ 125 mls/hr IV Q24H LYN; Protocol Stop: 05/20/21 02:59 Last Infusion: 05/13/21 04:23 Dose: Infused Documented by: Dexamethasone 6 mg/ Syringe 1.5 mls @ 1 mls/min IV Q24H LYN Stop: 06/11/21 08:59 Last Admin: 05/13/21 08:31 Dose: 1 mls/min Documented by: Remdesivir 100 mg/ Sodium (Chloride) 250 mls @ 250 mls/hr IV Q24H LYN; Protocol Stop: 05/15/21 20:59 Last Infusion: 05/12/21 21:49 Dose: Infused Documented by: Ipratropium Pilgrim (Ipratropium Pilgrim Neb Soln 0.02% 2.5 Ml Vial) 0.5 mg INH Q2R PRN PRN Reason: Shortness Of Breath Stop: 06/11/21 05:28 Levalbuterol HCl (Levalbuterol 1.25mg/0.5ml Neb) 1.25 mg INH Q2R PRN PRN Reason: Shortness Of Breath Stop: 06/11/21 01:14 Ondansetron HCl (Ondansetron Inj 2 Mg/Ml 2 Ml Vial) 4 mg IV Q6H PRN PRN Reason: Nausea Stop: 06/11/21 05:19 Sodium Chloride (Sodium Chloride 0.9% 10ml Flush) 30 ml IV DAILY@2100 LYN Stop: 05/15/21 21:01 Last Admin: 05/12/21 20:22 Dose: 30 ml Documented by: PG Care Time/CCT Total # of Minutes Spent Total Time Spent with Patient: Total time spent is greater than 50% in coordination of care (as documented) at patient's floor/unit and/or counseling patient: Coding Level of Care Code 53088 Inpt Consult Level 4 Diagnoses Pneumonia due to COVID-19 virus U07.1; J12.82 Hypoxia R09.02 Acute respiratory failure with hypoxia J96.01 Hypertension I10
[2021-05-13] MEDS ORDERED: FUROSEMIDE INJ 20 MG/2 ML VIAL IV ONE (17:39)
--- NOTE | 2021-05-13 19:27 | XRay Report ---
XR chest 1V portable CLINICAL HISTORY: Hypoxia. Follow-up bilateral interstitial and alveolar opacity COMPARISON STUDY: 05/12/2021 TECHNIQUE: 1 view of the chest FINDINGS: Single frontal view of the chest demonstrates the cardiomediastinal silhouette to be within normal li mits. Compared to the previous examination, patchy interstitial and alveolar opacities are again pres ent bilaterally. The findings are again most characteristic of a viral type pneumonitis. Covid 19 pne umonia should be excluded. There is no evidence for pleural effusion. There is no evidence for vascul ar congestion. There is no acute osseous pathology. IMPRESSION: Patchy interstitial and alveolar opacities are again seen bilaterally characteristic of a viral type pneumonitis and probable Covid 19 pneumonia. ACT 112: Negative or not required by law. Electronically signed by: Saurabh Aragon M.D. 05/13/2021 7:25 PM
[2021-05-13] MEDS ORDERED: hydrALAZINE HCL 20 MG/ML VIAL IV PRN (19:37)
--- NOTE | 2021-05-13 19:44 | Hospitalist Progress Note ---
Date of Service May 13, 2021 Assessment & Plan (1) Pneumonia due to COVID-19 virus: Plan: Pneumonia due to COVID-19 virus with hypoxia/acute respiratory failure with hypoxia- Given dexamethasone 6 mg IV by the ED, will add additional 4 mg IV for total 10 mg IV in the ED Dexamethasone 6 mg IV every morning Xopenex/ Atrovent-nebulizers every 6 hours while awake and every 2 hours as needed Remdesivir IV per protocol Ceftriaxone 2 g IV daily Azithromycin 500 mg IV daily Presently dependent on Bipap receheck crp 05/14/21 for concern for baricitinib qualification (2) Hypoxia: Plan: See above (3) Acute respiratory failure with hypoxia: Plan: See above (4) Hypertension: Plan: Resume lisinopril Admission and Anticipated Discharge Date Admission Date: May 12, 2021 Subjective Patient is proning , he is bipap dependent but did have some reduction in level of support of oxygen Review of Systems Review of Systems: moderate distress and fatigue no headache, no visual changes no speech or swallowing issues no chest pain, pressure or palpitations significant shortness of breath, non productive cough no abdominal pain, nausea or vomiting, diarrhea or constipation no dysuria, hematuria or frequency no focal joint pain or swelling no back pain, CVA tenderness or radicular pain no bruising, bleeding or rashes no focal signs of weakness or numbness or altered sensation no complaints of anxiety or depression.. Physical Exam Physical Exam: The patient appeared significantly ill Vital signs as documented. Significant hypoxemia Head exam is normocephalic atraumatic Neck is without JVD, thyromegaly, or carotid bruits. Lungs rales in all lung zones accessory muscle use of breathing Cardiac exam, Rhythm is regular.. No murmurs, rubs or gallops. Abdominal exam reveals normal bowel sounds, soft non tender, no masses Extremities are nonedematous and both pedal pulses are present Neurologic exam is alert and oriented, no focal loss of strength or sensation Skin is without bruises or rashes Psychologically is without concerns for anxiety or depression.. Results & Data Results & Data ([facility]) Vital Signs (Past 12 Hours) Vital Signs Temp Pulse Pulse Resp BP Pulse Ox 05/13/21 17:44 101 H 24 93 05/13/21 17:30 96 05/13/21 16:53 97.9 F 61 20 152/99 H 97 05/13/21 14:30 92 H 30 H 98 05/13/21 14:00 98 H 05/13/21 11:44 98.2 F 88 20 134/81 97 05/13/21 11:13 94 H 24 100 05/13/21 09:20 89 99 05/13/21 08:43 108 H 26 H 90 05/13/21 08:29 91 H 22 97 05/13/21 08:00 83 05/13/21 07:46 98.4 F 91 H 19 144/99 H 94 PG Care Time/CCT Total # of Minutes Spent Total Time Spent with Patient: Total time spent is greater than 50% in coordination of care (as documented) at patient's floor/unit and/or counseling patient: Coding Level of Care Code 57025 Subseq Hosp Care Lvl 2 Diagnoses Pneumonia due to COVID-19 virus U07.1; J12.82 Hypoxia R09.02 Acute respiratory failure with hypoxia J96.01 Hypertension I10
[2021-05-13] MEDS: REMDESIVIR 100 MG in SODIUM CHLORIDE 0.9% 230 ML IV SCH (20:01)
[2021-05-13] MEDS: SODIUM CHLORIDE 0.9% 10ML FLUSH IV SCH (21:44)
[2021-05-14] MEDS: ACETAMINOPHEN 325 MG TAB PO PRN (02:19)
[2021-05-14] MEDS: AZITHROMYCIN 500 MG in DEXTROSE 5% 250 ML IV SCH (03:26)
[2021-05-14] MEDS ORDERED: PROMETHAZINE HCL 12.5 MG in SODIUM CHLORIDE 0.9% 50 ML IV ONE (03:30)
[2021-05-14] MEDS: cefTRIAXone SODIUM 2,000 MG in DEXTROSE 5% 50 ML IV SCH (08:05)
[2021-05-14] MEDS: dexAMETHasone 6 MG in SYRINGE 0 ML IV SCH ×2 (08:05→20:11)
[2021-05-14 08:25] LABS: Basophils # (auto) 0.01 K/uL (0-0.2); Basophils % (auto) 0.1 %; Hematocrit (blood only) 44.2 % (42-52); Hemoglobin 14.9 g/dL (14.0-18.0); Immature Granulocytes # (auto) 0.06 K/uL (0.00-0.02); Immature Granulocytes % (auto) 0.6 %; Lymphocytes # (auto) 0.52 K/uL (1.2-3.4); Mean Corpuscular Hemoglobin 30.3 pg (25-34); Mean Corpuscular Hgb Conc 33.7 g/dL (32-36); Mean Platelet Volume 9.8 fL (7.4-10.4); Monocytes # (auto) 0.84 K/uL (0.11-0.59); Monocytes % (auto) 8.1 %; Neutrophils # (auto) 8.89 K/uL (1.4-6.5); Neutrophils % (auto) 86.2 %; Platelet Count 243 K/uL (130-400); RDW Coefficient of Variation 12.6 % (11.5-14.5); RDW Standard Deviation 41.9 fL (36.4-46.3); Red Blood Count 4.91 M/uL (4.7-6.1); White Blood Count 10.32 K/uL (4.8-10.8)
[2021-05-14 08:54] LABS: Albumin Level 2.4 gm/dl (3.4-5.0); BUN Creatinine Ratio 33.4 (10-20); C Reactive Protein 2.65 mg/dl (0-0.29); Calcium 8.4 mg/dl (8.5-10.1); Creatinine Clr Calc Pharmacy 143.2 ml/min; Est GFR (African American) 129.8 ml/min; Potassium 3.8 mmol/L (3.5-5.1)
[2021-05-14 08:57] LABS: Albumin Globulin Ratio 0.6 (0.9-2); Bilirubin,Total 0.4 mg/dl (0.2-1); Globulin 3.7 gm/dl (2.5-4.0); Total Protein 6.1 gm/dl (6.4-8.2)
[2021-05-14] MEDS ORDERED: ENOXAPARIN 0.5 MG/KG SQ SCH (11:15)
[2021-05-14] MEDS: ENOXAPARIN INJ 60 MG/0.6 ML SYR SQ SCH ×2 (12:23→20:13)
[2021-05-14 13:15] LABS: Appearance Urine Clear (Clear); Bilirubin Urine Negative (Negative); Blood Urine Negative (Negative); Color Urine Yellow; Glucose Urine UA Trace (Negative); Ketones Urine Negative (Negative); Leukocyte Esterase Urine Negative (Negative); Nitrite Urine Negative (Negative); Protein Urine Negative (Negative); Specific Gravity Urine 1.023 (1.000-1.030); Urobilinogen Urine Negative (Negative)
--- NOTE | 2021-05-14 18:32 | Hospitalist Progress Note ---
Date of Service May 14, 2021 Assessment & Plan (1) Pneumonia due to COVID-19 virus: Plan: Pneumonia due to COVID-19 virus with hypoxia/acute respiratory failure with hypoxia- dexamethasone daily Remdesivir IV per protocol ld 05/15/21 deescalate to azithromycin receheck crp has declined (2) Hypoxia: Plan: See above (3) Acute respiratory failure with hypoxia: Plan: See above (4) Hypertension: Plan: Resume lisinopril Admission and Anticipated Discharge Date Admission Date: May 12, 2021 Subjective Patient is proning , he is non longer bipap dependent tolerating vapotherm Review of Systems Review of Systems: moderate but lesssening distress and fatigue no headache, no visual changes no speech or swallowing issues no chest pain, pressure or palpitations significant shortness of breath, non productive cough no abdominal pain, nausea or vomiting, diarrhea or constipation no dysuria, hematuria or frequency no focal joint pain or swelling no back pain, CVA tenderness or radicular pain no bruising, bleeding or rashes no focal signs of weakness or numbness or altered sensation no complaints of anxiety or depression.. Physical Exam Physical Exam: The patient appeared significantly ill but not worsening Vital signs as documented. Significant hypoxemia Head exam is normocephalic atraumatic Neck is without JVD, thyromegaly, or carotid bruits. Lungs rales in all lung zones accessory muscle use of breathing Cardiac exam, Rhythm is regular.. No murmurs, rubs or gallops. Abdominal exam reveals normal bowel sounds, soft non tender, no masses Extremities are nonedematous and both pedal pulses are present Neurologic exam is alert and oriented, no focal loss of strength or sensation Skin is without bruises or rashes Psychologically is without concerns for anxiety or depression.. Results & Data Results & Data ([facility]) Vital Signs (Past 12 Hours) Vital Signs Temp Pulse Pulse Resp BP Pulse Ox 05/14/21 15:09 98.1 F 103 H 20 142/88 H 93 05/14/21 14:51 16 93 05/14/21 12:10 98.6 F 100 H 21 136/84 92 05/14/21 11:37 91 H 24 90 05/14/21 08:00 90 05/14/21 07:45 98.4 F 105 H 24 143/92 H 90 PG Care Time/CCT Total # of Minutes Spent Total Time Spent with Patient: Total time spent is greater than 50% in coordination of care (as documented) at patient's floor/unit and/or counseling patient: Coding Level of Care Code 85479 Subseq Hosp Care Lvl 2 Diagnoses Pneumonia due to COVID-19 virus U07.1; J12.82 Hypoxia R09.02 Acute respiratory failure with hypoxia J96.01 Hypertension I10
--- NOTE | 2021-05-14 18:34 | Pulmonology Progress Note ---
Date of Service May 14, 2021 Assessment & Plan (1) Pneumonia due to COVID-19 virus: Plan: 46-year-old male with a significant history for hypertension who presented to the hospital with COVID-19 viral pneumonia currently requiring high flow nasal cannula/BiPAP. Patient continues vacillating between BiPAP and high flow nasal cannula as needed. Wean to maintain saturations above 90%. No indication for intubation at this time. Patient was initiated on dexamethasone 6 mg twice daily 05/13/2021. Recommend the increased dose of Decadron for the next 2 to 3 days and reevaluating. Will defer further steroid dosage to the hospitalist. Will defer antibiotics to hospitalist service. Pulmonary will sign off. Please call us should patient decompensate and require intubation/mechanical ventilation. Thank you for the consult. (2) Hypoxia: (3) Acute respiratory failure with hypoxia: (4) Hypertension: Admission and Anticipated Discharge Date Admission Date: May 12, 2021 Subjective Patient seen and examined. No significant changes from yesterday. Currently on BiPAP and laying on his side. Review of Systems Review of Systems: All systems reviewed & are unremarkable except as noted in HPI & below Physical Exam Physical Exam: PHYSICAL EXAM: General: awake, alert, fatigued appering Head: Normocephalic, atraumatic ENT: PERRL, EOMI, no pharyngeal exudate, mucous membranes moist Neuro: AAO x 3, speech clear and appropriate, strength intact bilaterally 5/5, sensation intact and equal all extremities and dermatomes, no pronator drift Chest: equal rise and fall of the chest, no accessory muscle use, no heaves or thrills, diminished breath sounds throughout with scattered rhonchi- diffuclt exam with disposable stehtescope and BiPAP Cardiac: Regular rate and rhythm, telemetry reviewed- NSR no ectopy, skin warm dry, cap refill <3 seconds, peripheral pulses +2 no JVD, no murmur, no edema GI: NABS x 4 quadrants, soft, nontender to palpation, no rebound, guarding or tenderness : Spontaneously voiding, no pain, no CVA tenderness, Extremities: Normal inspection, no peripheral edema or erythema, calfs nontender to palpation Psych: Normal mood and affect Skin: no rash or erythema Results & Data Results & Data ([facility]) Vital Signs (Past 12 Hours) Vital Signs Temp Pulse Pulse Resp BP Pulse Ox 05/14/21 15:09 36.7 C 103 H 20 142/88 H 93 05/14/21 14:51 16 93 05/14/21 12:10 37.0 C 100 H 21 136/84 92 05/14/21 11:37 91 H 24 90 05/14/21 08:00 90 05/14/21 07:45 36.9 C 105 H 24 143/92 H 90 PG Care Time/CCT Total # of Minutes Spent Total Time Spent with Patient: Total time spent is greater than 50% in coordination of care (as documented) at patient's floor/unit and/or counseling patient: Coding Level of Care Code 28732 Subseq Hosp Care Lvl 2 Diagnoses Pneumonia due to COVID-19 virus U07.1; J12.82 Hypoxia R09.02 Acute respiratory failure with hypoxia J96.01 Hypertension I10
[2021-05-14] MEDS: REMDESIVIR 100 MG in SODIUM CHLORIDE 0.9% 230 ML IV SCH (20:10)
[2021-05-14] MEDS: SODIUM CHLORIDE 0.9% 10ML FLUSH IV SCH (21:40)
[2021-05-15] MEDS: AZITHROMYCIN 500 MG in DEXTROSE 5% 250 ML IV SCH (02:26)
[2021-05-15] MEDS: dexAMETHasone 6 MG in SYRINGE 0 ML IV SCH ×2 (08:17→21:08)
[2021-05-15] MEDS: ENOXAPARIN INJ 60 MG/0.6 ML SYR SQ SCH ×2 (08:17→21:08)
[2021-05-15 09:41] LABS: Albumin Level 2.3 gm/dl (3.4-5.0); BUN Creatinine Ratio 26.3 (10-20); Bilirubin Direct 0.2 mg/dl (0-0.2); Calcium 8.4 mg/dl (8.5-10.1); Creatinine Clr Calc Pharmacy 120.8 ml/min; Est GFR (African American) 120.2 ml/min; Est GFR (Non-African American) 103.7 ml/min; Potassium 4.1 mmol/L (3.5-5.1)
[2021-05-15 09:44] LABS: Bilirubin,Total 0.5 mg/dl (0.2-1); Total Protein 5.9 gm/dl (6.4-8.2)
[2021-05-15] MEDS: lisinopril 10 MG TAB PO SCH (09:44)
--- NOTE | 2021-05-15 17:24 | Hospitalist Progress Note ---
Date of Service May 15, 2021 Assessment & Plan (1) Pneumonia due to COVID-19 virus: Plan: Pneumonia due to COVID-19 virus with hypoxia/acute respiratory failure with hypoxia- dexamethasone daily Remdesivir IV per protocol ld 05/15/21 deescalate to azithromycin receheck crp has declined remains on vapotherm but lessening doses (2) Hypoxia: Plan: See above (3) Acute respiratory failure with hypoxia: Plan: See above (4) Hypertension: Plan: Resume lisinopril Admission and Anticipated Discharge Date Admission Date: May 12, 2021 Subjective this pt is doing well, lessening oxygen need and support, cough is still improved Review of Systems Review of Systems: moderate but lesssening distress and fatigue no headache, no visual changes no speech or swallowing issues no chest pain, pressure or palpitations significant shortness of breath, non productive cough no abdominal pain, nausea or vomiting, diarrhea or constipation no dysuria, hematuria or frequency no focal joint pain or swelling no back pain, CVA tenderness or radicular pain no bruising, bleeding or rashes no focal signs of weakness or numbness or altered sensation no complaints of anxiety or depression.. Physical Exam Physical Exam: The patient appeared significantly ill but not worsening Vital signs as documented. Significant hypoxemia Head exam is normocephalic atraumatic Neck is without JVD, thyromegaly, or carotid bruits. Lungs rales in all lung zones seemingly more comfortable Cardiac exam, Rhythm is regular.. No murmurs, rubs or gallops. Abdominal exam reveals normal bowel sounds, soft non tender, no masses Extremities are nonedematous and both pedal pulses are present Neurologic exam is alert and oriented, no focal loss of strength or sensation Skin is without bruises or rashes Psychologically is without concerns for anxiety or depression.. Results & Data Results & Data ([facility]) Vital Signs (Past 12 Hours) Vital Signs Temp Pulse Pulse Resp BP BP Pulse Ox 05/15/21 15:55 98.8 F 88 20 118/78 95 05/15/21 15:47 87 28 H 91 05/15/21 15:00 94 H 05/15/21 11:51 98.2 F 87 20 126/74 91 05/15/21 11:28 81 24 93 05/15/21 08:00 84 05/15/21 07:40 98.2 F 79 23 127/81 89 L 05/15/21 05:40 95 H 18 90 PG Care Time/CCT Total # of Minutes Spent Total Time Spent with Patient: Total time spent is greater than 50% in coordination of care (as documented) at patient's floor/unit and/or counseling patient: Coding Level of Care Code 99605 Subseq Hosp Care Lvl 3 Diagnoses Pneumonia due to COVID-19 virus U07.1; J12.82 Hypoxia R09.02 Acute respiratory failure with hypoxia J96.01 Hypertension I10
[2021-05-15] MEDS: REMDESIVIR 100 MG in SODIUM CHLORIDE 0.9% 230 ML IV SCH (19:51)
[2021-05-15] MEDS: SODIUM CHLORIDE 0.9% 10ML FLUSH IV SCH (21:08)
[2021-05-16] MEDS: AZITHROMYCIN 500 MG in DEXTROSE 5% 250 ML IV SCH (02:40)
[2021-05-16] MEDS: lisinopril 10 MG TAB PO SCH (09:07)
[2021-05-16] MEDS: ENOXAPARIN INJ 60 MG/0.6 ML SYR SQ SCH ×2 (09:07→19:38)
[2021-05-16] MEDS: dexAMETHasone 6 MG in SYRINGE 0 ML IV SCH ×2 (09:07→19:38)
[2021-05-16] MEDS ORDERED: FUROSEMIDE INJ 20 MG/2 ML VIAL IV ONE (11:44)
--- NOTE | 2021-05-16 14:33 | Hospitalist Progress Note ---
Date of Service May 16, 2021 Assessment & Plan (1) Pneumonia due to COVID-19 virus: Plan: Pneumonia due to COVID-19 virus with hypoxia/acute respiratory failure with hypoxia- dexamethasone 6mg IV daily, day 6 Remdesivir IV per protocol, completed on 05/15 CRP down to 1 yesterday give Lasix 20mg IV today, great response with 1500mL out so far, will continue qAM he is compliant with laying prone short term goal is to get down to wall high flow (2) Acute respiratory failure with hypoxia: Plan: See above stable on 40L 70% Lasix 20mg IV daily for negative fluid balance lay prone (3) Hypertension: Plan: Resume lisinopril Admission and Anticipated Discharge Date Admission Date: May 12, 2021 Subjective patient doing okay today, he was on his stomach for a while, just got back on his back he is eating well, had a BM yesterday gave him a dose of Lasix, he is making a lot of urine, at least 1500mL so far since this morning minimal cough, no sputum, no fever discussed that he can control laying prone and eating, he understands short term goal is to get off of Vapotherm, hopeful we can do that in the next few days Review of Systems Review of Systems: All systems reviewed & are unremarkable except as noted in Subjective Constitutional: no fever Respiratory: + cough, + dyspnea and + dyspnea on exertion Cardiovascular: no chest pain Physical Exam Physical Exam: General: well developed, well nourished, middle aged male, ill appearing but not in distress Neck: supple, trachea midline, normal thyroid Lungs: clear to auscultation bilaterally, + tachypnea, + accessory muscles, + cough Heart: regular S1 and S2, no murmur, peripheral pulses normal, capillary refill normal, no edema Abdomen: soft, NT, ND, + BS, no hepatomegaly, normal to percussion Extremities: normal in appearance, no cyanosis, no petechiae, strength is 5/5 bilaterally Neuro: awake, cooperative, moves all extremities, no focal motor deficits, CN II-XII intact, sensation in extremities intact, normal speech Skin: warm, dry, no rash, normal turgor Psych: Awake, alert oriented x 3, euthymic affect Results & Data Results & Data ([facility]) Vital Signs (Past 12 Hours) Vital Signs Temp Pulse Pulse Resp BP Pulse Ox 05/16/21 12:17 36.6 C 05/16/21 12:00 73 20 141/87 H 90 05/16/21 11:41 80 20 95 05/16/21 08:00 67 05/16/21 07:55 75 20 89 L 05/16/21 06:41 67 17 141/85 H 93 05/16/21 04:40 93 05/16/21 04:09 37.0 C 90 23 136/79 88 L 05/16/21 02:52 82 22 92 Medications Administered Current Inpatient Medications Acetaminophen (Acetaminophen 325 Mg Tab) 650 mg PO Q4H PRN PRN Reason: Pain or Fever Stop: 06/11/21 05:19 Last Admin: 05/14/21 02:19 Dose: 650 mg Documented by: Enoxaparin Sodium (Enoxaparin Inj 60 Mg/0.6 Ml Syr) 50 mg SQ Q12 [facility] Stop: 06/13/21 11:29 Last Admin: 05/16/21 09:07 Dose: 50 mg Documented by: Hydralazine HCl (Hydralazine Hcl 20 Mg/Ml Vial) 10 mg IV Q8 PRN PRN Reason: Blood Pressure - High Stop: 06/12/21 19:36 Last Admin: 05/14/21 02:24 Dose: 10 mg Documented by: Azithromycin 500 mg/ Dextrose 255 mls @ 125 mls/hr IV Q24H [facility]; Protocol Stop: 05/20/21 02:59 Last Infusion: 05/16/21 05:25 Dose: Infused Documented by: Dexamethasone 6 mg/ Syringe 1.5 mls @ 1 mls/min IV BID [facility] Stop: 06/12/21 20:59 Last Admin: 05/16/21 09:07 Dose: 1 mls/min Documented by: Ipratropium [place] (Ipratropium [place] Neb Soln 0.02% 2.5 Ml Vial) 0.5 mg INH Q2R PRN PRN Reason: Shortness Of Breath Stop: 06/11/21 05:28 Levalbuterol HCl (Levalbuterol 1.25mg/0.5ml Neb) 1.25 mg INH Q2R PRN PRN Reason: Shortness Of Breath Stop: 06/11/21 01:14 Lisinopril (Lisinopril 10 Mg Tab) 10 mg PO QAM [facility] Stop: 06/14/21 08:59 Last Admin: 05/16/21 09:07 Dose: 10 mg Documented by: Ondansetron HCl (Ondansetron Inj 2 Mg/Ml 2 Ml Vial) 4 mg IV Q6H PRN PRN Reason: Nausea Stop: 06/11/21 05:19 Last Admin: 05/14/21 03:10 Dose: 4 mg Documented by: PG Care Time/CCT Total # of Minutes Spent Total Time Spent with Patient: Total time spent is greater than 50% in coordination of care (as documented) at patient's floor/unit and/or counseling patient: Coding Level of Care Code 01546 Subseq Hosp Care Lvl 2 Diagnoses Pneumonia due to COVID-19 virus U07.1; J12.82 Acute respiratory failure with hypoxia J96.01 Hypertension I10
[2021-05-17] MEDS: AZITHROMYCIN 500 MG in DEXTROSE 5% 250 ML IV SCH (02:20)
[2021-05-17] MEDS: ENOXAPARIN INJ 60 MG/0.6 ML SYR SQ SCH ×2 (08:55→20:42)
[2021-05-17] MEDS: lisinopril 10 MG TAB PO SCH (08:55)
[2021-05-17] MEDS: FUROSEMIDE INJ 20 MG/2 ML VIAL IV SCH (08:55)
[2021-05-17] MEDS: dexAMETHasone 6 MG in SYRINGE 0 ML IV SCH (08:56)
[2021-05-17 09:06] LABS: Creatinine Clr Calc Pharmacy 123.7 ml/min; Est GFR (Non-African American) 105.2 ml/min
--- NOTE | 2021-05-17 09:06 | XRay Report ---
XR chest 1V portable CLINICAL HISTORY: hypoxia, COVID COMPARISON STUDY: Chest radiograph May 13, 2021. FINDINGS: Multifocal bilateral airspace opacities are noted. Right lung airspace opacities have incre ased in density. There is no pneumothorax or pleural effusion. Cardiomediastinal silhouette is stable . IMPRESSION: Bilateral airspace opacities consistent with viral pneumonia. Slight increase in right l leny airspace opacity/consolidation. ACT 112: Negative or not required by law. Electronically signed by: Cody Burrell M.D. 05/17/2021 9:04 AM
--- NOTE | 2021-05-17 13:09 | Hospitalist Progress Note ---
Date of Service May 17, 2021 Assessment & Plan (1) Pneumonia due to COVID-19 virus: Plan: Pneumonia due to COVID-19 virus with hypoxia/acute respiratory failure with hypoxia- dexamethasone 6mg IV daily, day 7 since he is getting worse will increase dexamethasone to 20mg IV x 5 days then 10mg IV x 5 days Remdesivir IV per protocol, completed on 05/15 CRP down to 1 when last checked was not a candidate for baricitinib because his CRP was < 7.5 give Lasix 20mg IV qAM he is compliant with laying prone at night, needs to be prone as much as possible increased oxygen requirements today, 40L 100%, stressed importance of being prone all the time next step would be CPAP, d/w RT (2) Acute respiratory failure with hypoxia: Plan: See above up to 40L and 100% today (70% yesterday) Lasix 20mg IV daily for negative fluid balance lay prone as much as possible (3) Hypertension: Plan: Resume lisinopril Admission and Anticipated Discharge Date Admission Date: May 12, 2021 Subjective patient doing okay, he is up to 40L 100% he is spending the majority of his time prone, he is tachypneic and belly breathing he responded well to the Lasix 20mg IV this morning eating and drinking well this morning and afternoon he understands the necessity to be prone to prevent need for CPAP/intubation Review of Systems Review of Systems: All systems reviewed & are unremarkable except as noted in Subjective Respiratory: + cough, + dyspnea and + dyspnea on exertion Physical Exam Physical Exam: General: well developed, well nourished, middle aged male, ill appearing but not in distress Neck: supple, trachea midline, normal thyroid Lungs: clear to auscultation bilaterally, + tachypnea, + accessory muscles, + cough Heart: regular S1 and S2, no murmur, peripheral pulses normal, capillary refill normal, no edema Abdomen: soft, NT, ND, + BS, no hepatomegaly, normal to percussion Extremities: normal in appearance, no cyanosis, no petechiae, strength is 5/5 bilaterally Neuro: awake, cooperative, moves all extremities, no focal motor deficits, CN II-XII intact, sensation in extremities intact, normal speech Skin: warm, dry, no rash, normal turgor Psych: Awake, alert oriented x 3, euthymic affect Results & Data Results & Data ([facility]) Vital Signs (Past 12 Hours) Vital Signs Temp Pulse Pulse Resp BP BP Pulse Ox 05/17/21 12:31 36.7 C 102 H 24 138/83 92 05/17/21 11:32 97 H 20 90 05/17/21 08:00 36.7 C 89 78 22 133/81 05/17/21 07:33 89 20 90 05/17/21 04:06 84 20 89 L 05/17/21 03:05 36.6 C 78 19 122/84 91 Laboratory Results Laboratory Results - last 24 hr 05/17/21 08:20 Creatinine 0.85 Est Cr Clr Drug Dosing 123.7 Est GFR ( Amer) 122.0 Est GFR (Non-Af Amer) 105.2 Medications Administered Current Inpatient Medications Acetaminophen (Acetaminophen 325 Mg Tab) 650 mg PO Q4H PRN PRN Reason: Pain or Fever Stop: 06/11/21 05:19 Last Admin: 05/14/21 02:19 Dose: 650 mg Documented by: Enoxaparin Sodium (Enoxaparin Inj 60 Mg/0.6 Ml Syr) 50 mg SQ Q12 [facility] Stop: 06/13/21 11:29 Last Admin: 05/17/21 08:55 Dose: 50 mg Documented by: Furosemide (Furosemide Inj 20 Mg/2 Ml Vial) 20 mg IV QAM [facility] Stop: 06/16/21 08:59 Last Admin: 05/17/21 08:55 Dose: 20 mg Documented by: Hydralazine HCl (Hydralazine Hcl 20 Mg/Ml Vial) 10 mg IV Q8 PRN PRN Reason: Blood Pressure - High Stop: 06/12/21 19:36 Last Admin: 05/14/21 02:24 Dose: 10 mg Documented by: Azithromycin 500 mg/ Dextrose 255 mls @ 125 mls/hr IV Q24H [facility]; Protocol Stop: 05/20/21 02:59 Last Infusion: 05/17/21 04:24 Dose: Infused Documented by: Dexamethasone 6 mg/ Syringe 1.5 mls @ 1 mls/min IV BID [facility] Stop: 06/12/21 20:59 Last Admin: 05/17/21 08:56 Dose: 1 mls/min Documented by: Ipratropium [place] (Ipratropium [place] Neb Soln 0.02% 2.5 Ml Vial) 0.5 mg INH Q2R PRN PRN Reason: Shortness Of Breath Stop: 06/11/21 05:28 Levalbuterol HCl (Levalbuterol 1.25mg/0.5ml Neb) 1.25 mg INH Q2R PRN PRN Reason: Shortness Of Breath Stop: 06/11/21 01:14 Lisinopril (Lisinopril 10 Mg Tab) 10 mg PO QAM [facility] Stop: 06/14/21 08:59 Last Admin: 05/17/21 08:55 Dose: 10 mg Documented by: Ondansetron HCl (Ondansetron Inj 2 Mg/Ml 2 Ml Vial) 4 mg IV Q6H PRN PRN Reason: Nausea Stop: 06/11/21 05:19 Last Admin: 05/14/21 03:10 Dose: 4 mg Documented by: PG Care Time/CCT Total # of Minutes Spent Total Time Spent: 31 Total Time Spent with Patient: Total time spent is greater than 50% in coordination of care (as documented) at patient's floor/unit and/or counseling patient: Coding Level of Care Code 41603 Subseq Hosp Care Lvl 3 (25 - SIGNIFICANT, SEPARATELY IDENTIFIABLE ) Diagnoses Pneumonia due to COVID-19 virus U07.1; J12.82 Acute respiratory failure with hypoxia J96.01 Hypertension I10
[2021-05-17] MEDS ORDERED: DEXAMETHASONE IV ONE (14:00)
[2021-05-17] MEDS ORDERED: SODIUM CHLORIDE 0.9% IV ONE (14:00)
[2021-05-18] MEDS: AZITHROMYCIN 500 MG in DEXTROSE 5% 250 ML IV SCH (04:40)
[2021-05-18 07:55] LABS: Hematocrit (blood only) 49.8 % (42-52); Hemoglobin 16.8 g/dL (14.0-18.0); Mean Corpuscular Hemoglobin 30.3 pg (25-34); Mean Corpuscular Hgb Conc 33.7 g/dL (32-36); Mean Corpuscular Volume 89.7 fL (80-100); Mean Platelet Volume 9.9 fL (7.4-10.4); Platelet Count 365 K/uL (130-400); RDW Coefficient of Variation 12.4 % (11.5-14.5); RDW Standard Deviation 40.8 fL (36.4-46.3); Red Blood Count 5.55 M/uL (4.7-6.1); White Blood Count 14.82 K/uL (4.8-10.8)
[2021-05-18 08:32] LABS: BUN Creatinine Ratio 33.3 (10-20); C Reactive Protein 0.63 mg/dl (0-0.29); Calcium 8.5 mg/dl (8.5-10.1); Creatinine Clr Calc Pharmacy 128.4 ml/min; Est GFR (African American) 124.4 ml/min; Est GFR (Non-African American) 107.3 ml/min; Potassium 4.7 mmol/L (3.5-5.1)
[2021-05-18] MEDS: FUROSEMIDE INJ 20 MG/2 ML VIAL IV SCH (09:22)
[2021-05-18] MEDS: ACETAMINOPHEN 325 MG TAB PO PRN (09:22)
[2021-05-18] MEDS: ENOXAPARIN INJ 60 MG/0.6 ML SYR SQ SCH ×2 (09:23→20:05)
[2021-05-18] MEDS: lisinopril 10 MG TAB PO SCH (09:24)
[2021-05-18] MEDS: DEXAMETHASONE IV SCH (10:25)
[2021-05-18] MEDS: SODIUM CHLORIDE 0.9% IV SCH (10:25)
--- NOTE | 2021-05-18 12:17 | Hospitalist Progress Note ---
Date of Service May 18, 2021 Assessment & Plan (1) Pneumonia due to COVID-19 virus: Plan: Pneumonia due to COVID-19 virus with hypoxia/acute respiratory failure with hypoxia- dexamethasone treatment day 8 increased dexamethasone to 20mg IV daily on 05/17, continue x 5 days then 10mg IV x 5 days Remdesivir IV per protocol, completed on 05/15 CRP is < 1 today was not a candidate for baricitinib because his CRP was never > 7.5 give Lasix 20mg IV qAM, making urine he is compliant with laying prone at night, needs to be prone as much as possible remains on high flow today, down slightly at 35L 90% if saturations would drop we would try CPAP (2) Acute respiratory failure with hypoxia: Plan: still on 35L and 90% today Lasix 20mg IV daily for negative fluid balance lay prone as much as possible, he is compliant (3) Hypertension: Plan: continue lisinopril Admission and Anticipated Discharge Date Admission Date: May 12, 2021 Subjective patient continues to be short of breath, on 35L and 90%, slightly better than yesterday eating okay, had a BM yesterday, no nausea, no fever has a dry cough he is laying on his right side currently, he is proning often which helps labs today show CRP < 1, Cr and K normal, WBC up due to steroids Review of Systems Review of Systems: All systems reviewed & are unremarkable except as noted in Subjective Respiratory: + cough, + dyspnea and + dyspnea on exertion; no sputum production Physical Exam Physical Exam: General: well developed, well nourished, middle aged male, ill appearing but not in distress Neck: supple, trachea midline, normal thyroid Lungs: clear to auscultation bilaterally, + tachypnea, + accessory muscles, + cough Heart: regular S1 and S2, no murmur, peripheral pulses normal, capillary refill normal, no edema Abdomen: soft, NT, ND, + BS, no hepatomegaly, normal to percussion Extremities: normal in appearance, no cyanosis, no petechiae, strength is 5/5 bilaterally Neuro: awake, cooperative, moves all extremities, no focal motor deficits, CN II-XII intact, sensation in extremities intact, normal speech Skin: warm, dry, no rash, normal turgor Psych: Awake, alert oriented x 3, flat affect Results & Data Results & Data ([place]) Vital Signs (Past 12 Hours) Vital Signs Temp Pulse Pulse Resp BP BP Pulse Ox 05/18/21 11:21 36.8 C 113 H 22 115/79 96 05/18/21 11:17 88 22 92 05/18/21 08:19 102 H 22 93 05/18/21 07:24 37.0 C 76 23 128/88 96 05/18/21 07:00 86 05/18/21 03:35 73 24 93 05/18/21 03:15 36.8 C 78 18 133/85 96 Laboratory Results Laboratory Results - last 24 hr 05/18/21 05/18/21 07:35 07:35 WBC 14.82 H RBC 5.55 Hgb 16.8 Hct 49.8 MCV 89.7 MCH 30.3 MCHC 33.7 RDW Std Deviation 40.8 RDW Coeff of [place] 12.4 Plt Count 365 MPV 9.9 Sodium 137 Potassium 4.7 Chloride 104 Carbon Dioxide 25 Anion Gap 8.0 BUN 27 H Creatinine 0.81 Est Cr Clr Drug Dosing 128.4 Est GFR ( Amer) 124.4 Est GFR (Non-Af Amer) 107.3 BUN/Creatinine Ratio 33.3 H Glucose 93 Calcium 8.5 C-Reactive Protein 0.63 H Medications Administered Current Inpatient Medications Acetaminophen (Acetaminophen 325 Mg Tab) 650 mg PO Q4H PRN PRN Reason: Pain or Fever Stop: 06/11/21 05:19 Last Admin: 05/18/21 09:22 Dose: 650 mg Documented by: Enoxaparin Sodium (Enoxaparin Inj 60 Mg/0.6 Ml Syr) 50 mg SQ Q12 [facility] Stop: 06/13/21 11:29 Last Admin: 05/18/21 09:23 Dose: 50 mg Documented by: Furosemide (Furosemide Inj 20 Mg/2 Ml Vial) 20 mg IV QAM [facility] Stop: 06/16/21 08:59 Last Admin: 05/18/21 09:22 Dose: 20 mg Documented by: Hydralazine HCl (Hydralazine Hcl 20 Mg/Ml Vial) 10 mg IV Q8 PRN PRN Reason: Blood Pressure - High Stop: 06/12/21 19:36 Last Admin: 05/14/21 02:24 Dose: 10 mg Documented by: Azithromycin 500 mg/ Dextrose 255 mls @ 125 mls/hr IV Q24H [facility]; Protocol Stop: 05/20/21 02:59 Last Infusion: 05/18/21 06:49 Dose: Infused Documented by: Dexamethasone 20 mg/ Sodium (Chloride) 30 mls @ 100 mls/hr IV DAILY [facility] Stop: 06/17/21 08:59 Last Admin: 05/18/21 10:25 Dose: 100 mls/hr Documented by: Ipratropium [place] (Ipratropium [place] Neb Soln 0.02% 2.5 Ml Vial) 0.5 mg INH Q2R PRN PRN Reason: Shortness Of Breath Stop: 06/11/21 05:28 Levalbuterol HCl (Levalbuterol 1.25mg/0.5ml Neb) 1.25 mg INH Q2R PRN PRN Reason: Shortness Of Breath Stop: 06/11/21 01:14 Lisinopril (Lisinopril 10 Mg Tab) 10 mg PO QAM [facility] Stop: 06/14/21 08:59 Last Admin: 05/18/21 09:24 Dose: 10 mg Documented by: Ondansetron HCl (Ondansetron Inj 2 Mg/Ml 2 Ml Vial) 4 mg IV Q6H PRN PRN Reason: Nausea Stop: 06/11/21 05:19 Last Admin: 05/14/21 03:10 Dose: 4 mg Documented by: PG Care Time/CCT Total # of Minutes Spent Total Time Spent with Patient: Total time spent is greater than 50% in coordination of care (as documented) at patient's floor/unit and/or counseling patient: Coding Level of Care Code 01932 Subseq Hosp Care Lvl 2 Diagnoses Pneumonia due to COVID-19 virus U07.1; J12.82 Acute respiratory failure with hypoxia J96.01 Hypertension I10
[2021-05-18] MEDS: CALCIUM CARBONATE 500 MG CHEWABLE TAB PO PRN (21:15)
[2021-05-19] MEDS: AZITHROMYCIN 500 MG in DEXTROSE 5% 250 ML IV SCH (03:07)
[2021-05-19] MEDS: ACETAMINOPHEN 325 MG TAB PO PRN ×2 (03:12→14:32)
[2021-05-19] MEDS: CALCIUM CARBONATE 500 MG CHEWABLE TAB PO PRN ×2 (03:12→20:46)
[2021-05-19] MEDS: ENOXAPARIN INJ 60 MG/0.6 ML SYR SQ SCH ×2 (08:24→20:47)
[2021-05-19] MEDS: lisinopril 10 MG TAB PO SCH (08:25)
[2021-05-19] MEDS: FUROSEMIDE INJ 20 MG/2 ML VIAL IV SCH (08:26)
[2021-05-19] MEDS: SODIUM CHLORIDE 0.9% IV SCH (09:29)
[2021-05-19] MEDS: DEXAMETHASONE IV SCH (09:29)
--- NOTE | 2021-05-19 09:59 | Hospitalist Progress Note ---
Date of Service May 19, 2021 Assessment & Plan (1) Pneumonia due to COVID-19 virus: Plan: Pneumonia due to COVID-19 virus with hypoxia/acute respiratory failure with hypoxia- dexamethasone treatment day 9 increased dexamethasone to 20mg IV daily on 05/17, day 3 of 5 then decrease to 10mg IV x 5 days Remdesivir IV per protocol, completed on 05/15 CRP is < 1 today was not a candidate for baricitinib because his CRP was never > 7.5 continue Lasix 20mg IV qAM, making urine he is compliant with laying prone at night, needs to be prone as much as possible remains on high flow today, stable at 35L 90% if saturations would drop we would try CPAP but he has been able to avoid that thus far (2) Acute respiratory failure with hypoxia: Plan: still on 35L and 90% today Lasix 20mg IV daily for negative fluid balance lay prone as much as possible, he is compliant (3) Hypertension: Plan: continue lisinopril Admission and Anticipated Discharge Date Admission Date: May 12, 2021 Subjective patient is feeling about the same as yesterday, on 35L 90%, no distress eating well, drinking fluids, making urine every morning after Lasix, had a BM yesterday no fever, + cough he is laying prone as much as he can, difficult being here, every day the nate encouraged him to stay strong, don't give up, he will recover from this Review of Systems Review of Systems: All systems reviewed & are unremarkable except as noted in Subjective Respiratory: + cough, + dyspnea and + dyspnea on exertion Physical Exam Physical Exam: General: well developed, well nourished, middle aged male, ill appearing but not in distress Neck: supple, trachea midline, normal thyroid Lungs: clear to auscultation bilaterally, + tachypnea, + accessory muscles, + cough Heart: regular S1 and S2, no murmur, peripheral pulses normal, capillary refill normal, no edema Abdomen: soft, NT, ND, + BS, no hepatomegaly, normal to percussion Extremities: normal in appearance, no cyanosis, no petechiae, strength is 5/5 bilaterally Neuro: awake, cooperative, moves all extremities, no focal motor deficits, CN II-XII intact, sensation in extremities intact, normal speech Skin: warm, dry, no rash, normal turgor Psych: Awake, alert oriented x 3, flat affect Results & Data Results & Data ([facility]) Vital Signs (Past 12 Hours) Vital Signs Temp Pulse Pulse Pulse Resp BP Pulse Ox 05/19/21 09:38 78 05/19/21 07:41 87 18 93 05/19/21 07:30 36.7 C 80 18 123/83 95 05/19/21 03:10 92 H 20 90 05/19/21 03:00 36.6 C 84 22 140/93 92 05/18/21 23:40 92 H 18 91 05/18/21 23:37 36.8 C 93 H 18 123/86 94 05/18/21 22:19 102 H Medications Administered Current Inpatient Medications Acetaminophen (Acetaminophen 325 Mg Tab) 650 mg PO Q4H PRN PRN Reason: Pain or Fever Stop: 06/11/21 05:19 Last Admin: 05/19/21 03:12 Dose: 650 mg Documented by: Calcium Carbonate (Calcium Carbonate 500 Mg Chewable Tab) 500 mg PO Q6H PRN PRN Reason: Indigestion Stop: 06/17/21 20:14 Last Admin: 05/19/21 03:12 Dose: 500 mg Documented by: Enoxaparin Sodium (Enoxaparin Inj 60 Mg/0.6 Ml Syr) 50 mg SQ Q12 [facility] Stop: 06/13/21 11:29 Last Admin: 05/19/21 08:24 Dose: 50 mg Documented by: Furosemide (Furosemide Inj 20 Mg/2 Ml Vial) 20 mg IV QAM [facility] Stop: 06/16/21 08:59 Last Admin: 05/19/21 08:26 Dose: 20 mg Documented by: Hydralazine HCl (Hydralazine Hcl 20 Mg/Ml Vial) 10 mg IV Q8 PRN PRN Reason: Blood Pressure - High Stop: 06/12/21 19:36 Last Admin: 05/14/21 02:24 Dose: 10 mg Documented by: Azithromycin 500 mg/ Dextrose 255 mls @ 125 mls/hr IV Q24H [facility]; Protocol Stop: 05/20/21 02:59 Last Infusion: 05/19/21 05:13 Dose: Infused Documented by: Dexamethasone 20 mg/ Sodium (Chloride) 30 mls @ 100 mls/hr IV DAILY [facility] Stop: 06/17/21 08:59 Last Infusion: 05/19/21 09:55 Dose: Infused Documented by: Ipratropium [place] (Ipratropium [place] Neb Soln 0.02% 2.5 Ml Vial) 0.5 mg INH Q2R PRN PRN Reason: Shortness Of Breath Stop: 06/11/21 05:28 Levalbuterol HCl (Levalbuterol 1.25mg/0.5ml Neb) 1.25 mg INH Q2R PRN PRN Reason: Shortness Of Breath Stop: 06/11/21 01:14 Lisinopril (Lisinopril 10 Mg Tab) 10 mg PO QAM [facility] Stop: 06/14/21 08:59 Last Admin: 05/19/21 08:25 Dose: 10 mg Documented by: Ondansetron HCl (Ondansetron Inj 2 Mg/Ml 2 Ml Vial) 4 mg IV Q6H PRN PRN Reason: Nausea Stop: 06/11/21 05:19 Last Admin: 05/14/21 03:10 Dose: 4 mg Documented by: PG Care Time/CCT Total # of Minutes Spent Total Time Spent with Patient: Total time spent is greater than 50% in coordination of care (as documented) at patient's floor/unit and/or counseling patient: Coding Level of Care Code 31543 Subseq Hosp Care Lvl 2 Diagnoses Pneumonia due to COVID-19 virus U07.1; J12.82 Acute respiratory failure with hypoxia J96.01 Hypertension I10
[2021-05-19] MEDS ORDERED: FAMOTIDINE 20 MG in SYRINGE 3 ML IV STA (22:06)
[2021-05-20] MEDS: ACETAMINOPHEN 325 MG TAB PO PRN (06:10)
[2021-05-20 08:02] LABS: Creatinine Clr Calc Pharmacy 117.5 ml/min; Est GFR (African American) 119.7 ml/min; Est GFR (Non-African American) 103.3 ml/min
[2021-05-20] MEDS: ENOXAPARIN INJ 60 MG/0.6 ML SYR SQ SCH ×2 (08:16→21:16)
[2021-05-20] MEDS: lisinopril 10 MG TAB PO SCH (08:16)
[2021-05-20] MEDS: FUROSEMIDE INJ 20 MG/2 ML VIAL IV SCH (08:19)
[2021-05-20] MEDS: DEXAMETHASONE IV SCH (09:08)
[2021-05-20] MEDS: SODIUM CHLORIDE 0.9% IV SCH (09:08)
--- NOTE | 2021-05-20 09:54 | Hospitalist Progress Note ---
Date of Service May 20, 2021 Assessment & Plan (1) Pneumonia due to COVID-19 virus: Plan: Pneumonia due to COVID-19 virus with hypoxia/acute respiratory failure with hypoxia- dexamethasone treatment day 10 increased dexamethasone to 20mg IV daily on 05/17, day 4 of 5 then decrease to 10mg IV x 5 days Remdesivir IV per protocol, completed on 05/15 CRP is < 1 on 05/19 was not a candidate for baricitinib because his CRP was never > 7.5 continue Lasix 20mg IV qAM, making urine he is compliant with laying prone at night, needs to be prone as much as possible remains on high flow today, stable at 25L 60%, try to wean further today (2) Acute respiratory failure with hypoxia: Plan: improved to 25L and 60% today Lasix 20mg IV daily for negative fluid balance lay prone as much as possible, he is compliant (3) Hypertension: Plan: continue lisinopril (4) Headache: Plan: feels like a migraine will give a dose of Imitrex to see if he gets relief Admission and Anticipated Discharge Date Admission Date: May 12, 2021 Subjective down to 25L and 60% since yesterday afternoon, this is an improvement eating okay laying prone no significant coughing Review of Systems Review of Systems: All systems reviewed & are unremarkable except as noted in Subjective Constitutional: + fatigue and + weakness; no fever Respiratory: + cough, + dyspnea and + dyspnea on exertion Physical Exam Physical Exam: General: well developed, well nourished, middle aged male, ill appearing but not in distress Neck: supple, trachea midline, normal thyroid Lungs: clear to auscultation bilaterally, + tachypnea, + accessory muscles, + cough Heart: regular S1 and S2, no murmur, peripheral pulses normal, capillary refill normal, no edema Abdomen: soft, NT, ND, + BS, no hepatomegaly, normal to percussion Extremities: normal in appearance, no cyanosis, no petechiae, strength is 5/5 bilaterally Neuro: awake, cooperative, moves all extremities, no focal motor deficits, CN II-XII intact, sensation in extremities intact, normal speech Skin: warm, dry, no rash, normal turgor Psych: Awake, alert oriented x 3, flat affect Results & Data Results & Data ([facility]) Vital Signs (Past 12 Hours) Vital Signs Temp Pulse Pulse Pulse Resp BP BP 05/20/21 07:36 83 20 05/20/21 07:33 36.6 C 70 20 128/84 05/20/21 02:55 36.8 C 94 H 20 134/95 05/20/21 02:50 91 H 22 05/19/21 23:24 105 H 22 05/19/21 22:19 90 05/19/21 22:05 36.9 C 109 H 20 108/92 Pulse Ox 05/20/21 07:36 95 05/20/21 07:33 96 05/20/21 02:55 94 05/20/21 02:50 93 05/19/21 23:24 94 05/19/21 22:19 05/19/21 22:05 93 Laboratory Results Laboratory Results - last 24 hr 05/20/21 06:49 Creatinine 0.89 Est Cr Clr Drug Dosing 117.5 Est GFR ( Amer) 119.7 Est GFR (Non-Af Amer) 103.3 Medications Administered Current Inpatient Medications Acetaminophen (Acetaminophen 325 Mg Tab) 650 mg PO Q4H PRN PRN Reason: Pain or Fever Stop: 06/11/21 05:19 Last Admin: 05/20/21 06:10 Dose: 650 mg Documented by: Calcium Carbonate (Calcium Carbonate 500 Mg Chewable Tab) 500 mg PO Q6H PRN PRN Reason: Indigestion Stop: 06/17/21 20:14 Last Admin: 05/19/21 20:46 Dose: 500 mg Documented by: Enoxaparin Sodium (Enoxaparin Inj 60 Mg/0.6 Ml Syr) 50 mg SQ Q12 [facility] Stop: 06/13/21 11:29 Last Admin: 05/20/21 08:16 Dose: 50 mg Documented by: Furosemide (Furosemide Inj 20 Mg/2 Ml Vial) 20 mg IV QAM [facility] Stop: 06/16/21 08:59 Last Admin: 05/20/21 08:19 Dose: 20 mg Documented by: Hydralazine HCl (Hydralazine Hcl 20 Mg/Ml Vial) 10 mg IV Q8 PRN PRN Reason: Blood Pressure - High Stop: 06/12/21 19:36 Last Admin: 05/14/21 02:24 Dose: 10 mg Documented by: Dexamethasone 20 mg/ Sodium (Chloride) 30 mls @ 100 mls/hr IV DAILY [facility] Stop: 06/17/21 08:59 Last Infusion: 05/20/21 09:35 Dose: Infused Documented by: Ipratropium [place] (Ipratropium [place] Neb Soln 0.02% 2.5 Ml Vial) 0.5 mg INH Q2R PRN PRN Reason: Shortness Of Breath Stop: 06/11/21 05:28 Levalbuterol HCl (Levalbuterol 1.25mg/0.5ml Neb) 1.25 mg INH Q2R PRN PRN Reason: Shortness Of Breath Stop: 06/11/21 01:14 Lisinopril (Lisinopril 10 Mg Tab) 10 mg PO QAM [facility] Stop: 06/14/21 08:59 Last Admin: 05/20/21 08:16 Dose: 10 mg Documented by: Ondansetron HCl (Ondansetron Inj 2 Mg/Ml 2 Ml Vial) 4 mg IV Q6H PRN PRN Reason: Nausea Stop: 06/11/21 05:19 Last Admin: 05/14/21 03:10 Dose: 4 mg Documented by: PG Care Time/CCT Total # of Minutes Spent Total Time Spent with Patient: Total time spent is greater than 50% in coordination of care (as documented) at patient's floor/unit and/or counseling patient: Coding Level of Care Code 77972 Subseq Hosp Care Lvl 2 Diagnoses Pneumonia due to COVID-19 virus U07.1; J12.82 Acute respiratory failure with hypoxia J96.01 Hypertension I10 Headache R51.9
[2021-05-20] MEDS ORDERED: SUMAtriptan succinate 6 MG/0.5 ML VIAL SQ STA (10:05)
[2021-05-21] MEDS: ACETAMINOPHEN 325 MG TAB PO PRN (02:35)
[2021-05-21] MEDS ORDERED: IBUPROFEN 200 MG TAB PO STA (04:11)
[2021-05-21] MEDS: lisinopril 10 MG TAB PO SCH (08:44)
[2021-05-21] MEDS: FUROSEMIDE INJ 20 MG/2 ML VIAL IV SCH (08:45)
[2021-05-21] MEDS: ENOXAPARIN INJ 60 MG/0.6 ML SYR SQ SCH ×2 (08:45→20:58)
[2021-05-21] MEDS: DEXAMETHASONE IV SCH (08:51)
[2021-05-21] MEDS: SODIUM CHLORIDE 0.9% IV SCH (08:51)
--- NOTE | 2021-05-21 12:19 | Hospitalist Progress Note ---
Date of Service May 21, 2021 Assessment & Plan (1) Pneumonia due to COVID-19 virus: Plan: Pneumonia due to COVID-19 virus with hypoxia/acute respiratory failure with hypoxia- dexamethasone treatment day 10 increased dexamethasone to 20mg IV daily on 05/17, day 5 of 5 then decrease to 10mg IV x 5 days Remdesivir IV per protocol, completed on 05/15 CRP is < 1 on 05/19 was not a candidate for baricitinib because his CRP was never > 7.5 continue Lasix 20mg IV qAM, making urine he is compliant with laying prone at night, needs to be prone as much as possible down to 13L wall high flow, off of Vapotherm, feeling a lot better today discussed that once he is down to 2-3L at rest we can talk about discharge (2) Acute respiratory failure with hypoxia: Plan: improved to 13L today Lasix 20mg IV daily for negative fluid balance lay prone as much as possible, he is compliant (3) Hypertension: Plan: continue lisinopril (4) Headache: Plan: no relief with Imitrex can try Toradol PRN Admission and Anticipated Discharge Date Admission Date: May 12, 2021 Subjective patient is down to 13L wall high flow, feeling much better, breathing easier main complaint is a headache still, right sided, posterior denies neck pain or stiff muscles eating well, drinking well, sleeping okay laying on his stomach often Review of Systems Review of Systems: All systems reviewed & are unremarkable except as noted in Subjective Respiratory: + cough, + dyspnea and + dyspnea on exertion Physical Exam Physical Exam: General: well developed, well nourished, middle aged male, ill appearing but not in distress Neck: supple, trachea midline, normal thyroid Lungs: clear to auscultation bilaterally, breathing easier, no accessory muscle use, no cough Heart: regular S1 and S2, no murmur, peripheral pulses normal, capillary refill normal, no edema Abdomen: soft, NT, ND, + BS, no hepatomegaly, normal to percussion Extremities: normal in appearance, no cyanosis, no petechiae, strength is 5/5 bilaterally Neuro: awake, cooperative, moves all extremities, no focal motor deficits, CN II-XII intact, sensation in extremities intact, normal speech Skin: warm, dry, no rash, normal turgor Psych: Awake, alert oriented x 3, euthymic affect Results & Data Results & Data ([place]) Vital Signs (Past 12 Hours) Vital Signs Temp Pulse Pulse Pulse Resp BP BP 05/21/21 11:42 37.0 C 100 H 20 102/66 05/21/21 08:29 87 20 05/21/21 07:33 37.0 C 78 20 107/75 05/21/21 07:00 77 05/21/21 05:13 105 H 05/21/21 03:11 37 C 85 18 117/77 05/21/21 01:45 94 H 18 Pulse Ox 05/21/21 11:42 92 05/21/21 08:29 93 05/21/21 07:33 93 05/21/21 07:00 05/21/21 05:13 05/21/21 03:11 93 05/21/21 01:45 93 Medications Administered Current Inpatient Medications Acetaminophen (Acetaminophen 325 Mg Tab) 650 mg PO Q4H PRN PRN Reason: Pain or Fever Stop: 06/11/21 05:19 Last Admin: 05/21/21 02:35 Dose: 650 mg Documented by: Calcium Carbonate (Calcium Carbonate 500 Mg Chewable Tab) 500 mg PO Q6H PRN PRN Reason: Indigestion Stop: 06/17/21 20:14 Last Admin: 05/19/21 20:46 Dose: 500 mg Documented by: Enoxaparin Sodium (Enoxaparin Inj 60 Mg/0.6 Ml Syr) 50 mg SQ Q12 [facility] Stop: 06/13/21 11:29 Last Admin: 05/21/21 08:45 Dose: 50 mg Documented by: Furosemide (Furosemide Inj 20 Mg/2 Ml Vial) 20 mg IV QAM [facility] Stop: 06/16/21 08:59 Last Admin: 05/21/21 08:45 Dose: 20 mg Documented by: Hydralazine HCl (Hydralazine Hcl 20 Mg/Ml Vial) 10 mg IV Q8 PRN PRN Reason: Blood Pressure - High Stop: 06/12/21 19:36 Last Admin: 05/14/21 02:24 Dose: 10 mg Documented by: Dexamethasone 20 mg/ Sodium (Chloride) 30 mls @ 100 mls/hr IV DAILY [facility] Stop: 06/17/21 08:59 Last Infusion: 05/21/21 10:08 Dose: Infused Documented by: Ipratropium [place] (Ipratropium [place] Neb Soln 0.02% 2.5 Ml Vial) 0.5 mg INH Q2R PRN PRN Reason: Shortness Of Breath Stop: 06/11/21 05:28 Levalbuterol HCl (Levalbuterol 1.25mg/0.5ml Neb) 1.25 mg INH Q2R PRN PRN Reason: Shortness Of Breath Stop: 06/11/21 01:14 Lisinopril (Lisinopril 10 Mg Tab) 10 mg PO QAM [facility] Stop: 06/14/21 08:59 Last Admin: 05/21/21 08:44 Dose: 10 mg Documented by: Ondansetron HCl (Ondansetron Inj 2 Mg/Ml 2 Ml Vial) 4 mg IV Q6H PRN PRN Reason: Nausea Stop: 06/11/21 05:19 Last Admin: 05/14/21 03:10 Dose: 4 mg Documented by: PG Care Time/CCT Total # of Minutes Spent Total Time Spent with Patient: Total time spent is greater than 50% in coordination of care (as documented) at patient's floor/unit and/or counseling patient: Coding Level of Care Code 80464 Subseq Hosp Care Lvl 2 Diagnoses Pneumonia due to COVID-19 virus U07.1; J12.82 Acute respiratory failure with hypoxia J96.01 Hypertension I10 Headache R51.9
[2021-05-21] MEDS ORDERED: KETOROLAC TROMETHAMINE 15 MG/ML VIAL IV PRN (19:57)
[2021-05-22] MEDS: dexAMETHasone 10 MG in SYRINGE 0 ML IV SCH (08:52)
[2021-05-22] MEDS: FUROSEMIDE INJ 20 MG/2 ML VIAL IV SCH (08:53)
[2021-05-22] MEDS: lisinopril 10 MG TAB PO SCH (08:53)
[2021-05-22] MEDS: ENOXAPARIN INJ 60 MG/0.6 ML SYR SQ SCH ×2 (08:53→20:21)
--- NOTE | 2021-05-22 13:33 | Hospitalist Progress Note ---
Date of Service May 22, 2021 Assessment & Plan (1) Pneumonia due to COVID-19 virus: Plan: Pneumonia due to COVID-19 virus with hypoxia/acute respiratory failure with hypoxia- dexamethasone treatment day 11 increased dexamethasone to 20mg IV daily on 05/17, day 5 of 5 now decrease to 10mg IV x 5 days Remdesivir IV per protocol, completed on 05/15 CRP is < 1 on 05/19 was not a candidate for baricitinib because his CRP was never > 7.5 continue Lasix 20mg IV qAM, making urine he is compliant with laying prone at night, needs to be prone as much as possible down to 7L wall high flow, off of Vapotherm, feeling a lot better today discussed that once he is down to 2-3L at rest we can talk about discharge due to sinus tachycardia, checked CTA chest this morning (05/22), no signs of PE (2) Acute respiratory failure with hypoxia: Plan: improved to 17L today Lasix 20mg IV daily for negative fluid balance lay prone as much as possible, he is compliant (3) Hypertension: Plan: continue lisinopril (4) Headache: Plan: no relief with Imitrex can try Toradol PRN Admission and Anticipated Discharge Date Admission Date: May 12, 2021 Subjective patient feels a lot better, he is down to 7L, breathing easier concerned about his HR though, up to 150's when he walked to the chair this morning, did not go down, he had to lay down no chest pain or pressure, he has been on Lovenox 50 q12 during his stay but never had a CTA on admission discussed with him checking a CTA, he agrees eating well, making urine with Lasix CTA: no PE, shows bilateral ground glass opacities Review of Systems Review of Systems: All systems reviewed & are unremarkable except as noted in Subjective Respiratory: + cough and + dyspnea on exertion Physical Exam Physical Exam: General: well developed, well nourished, middle aged male, ill appearing but not in distress Neck: supple, trachea midline, normal thyroid Lungs: clear to auscultation bilaterally, breathing easier, no accessory muscle use, no cough Heart: tachycardic S1 and S2, no murmur, peripheral pulses normal, capillary refill normal, no edema Abdomen: soft, NT, ND, + BS, no hepatomegaly, normal to percussion Extremities: normal in appearance, no cyanosis, no petechiae, strength is 5/5 bilaterally Neuro: awake, cooperative, moves all extremities, no focal motor deficits, CN II-XII intact, sensation in extremities intact, normal speech Skin: warm, dry, no rash, normal turgor Psych: Awake, alert oriented x 3, euthymic affect Results & Data Results & Data ([facility]) Vital Signs (Past 12 Hours) Vital Signs Temp Pulse Pulse Resp BP BP Pulse Ox 05/22/21 11:34 36.7 C 120 H 19 107/51 L 93 05/22/21 07:44 72 05/22/21 07:13 36.5 C 82 20 121/77 93 05/22/21 05:52 97 05/22/21 05:23 95 05/22/21 05:17 95 05/22/21 04:30 95 05/22/21 03:34 93 H 05/22/21 02:48 36.8 C 83 18 113/83 99 Diagnostic Findings CTA chest: IMPRESSION: 1. No evidence of pulmonary embolism. 2. Diffuse reticular opacities compatible with changes of Covid pneumonia. Medications Administered Current Inpatient Medications Acetaminophen (Acetaminophen 325 Mg Tab) 650 mg PO Q4H PRN PRN Reason: Pain or Fever Stop: 06/11/21 05:19 Last Admin: 05/21/21 02:35 Dose: 650 mg Documented by: Calcium Carbonate (Calcium Carbonate 500 Mg Chewable Tab) 500 mg PO Q6H PRN PRN Reason: Indigestion Stop: 06/17/21 20:14 Last Admin: 05/19/21 20:46 Dose: 500 mg Documented by: Enoxaparin Sodium (Enoxaparin Inj 60 Mg/0.6 Ml Syr) 50 mg SQ Q12 [facility] Stop: 06/13/21 11:29 Last Admin: 05/22/21 08:53 Dose: 50 mg Documented by: Furosemide (Furosemide Inj 20 Mg/2 Ml Vial) 20 mg IV QAM [facility] Stop: 06/16/21 08:59 Last Admin: 05/22/21 08:53 Dose: 20 mg Documented by: Hydralazine HCl (Hydralazine Hcl 20 Mg/Ml Vial) 10 mg IV Q8 PRN PRN Reason: Blood Pressure - High Stop: 06/12/21 19:36 Last Admin: 05/14/21 02:24 Dose: 10 mg Documented by: Dexamethasone 10 mg/ Syringe 2.5 mls @ 2.5 mls/min IV DAILY [facility] Stop: 06/21/21 08:59 Last Admin: 05/22/21 08:52 Dose: 2.5 mls/min Documented by: Ipratropium [place] (Ipratropium [place] Neb Soln 0.02% 2.5 Ml Vial) 0.5 mg INH Q2R PRN PRN Reason: Shortness Of Breath Stop: 06/11/21 05:28 Ketorolac Tromethamine (Ketorolac Tromethamine 15 Mg/Ml Vial) 15 mg IV Q6H PRN PRN Reason: Headache Stop: 05/26/21 19:56 Levalbuterol HCl (Levalbuterol 1.25mg/0.5ml Neb) 1.25 mg INH Q2R PRN PRN Reason: Shortness Of Breath Stop: 06/11/21 01:14 Lisinopril (Lisinopril 10 Mg Tab) 10 mg PO QAM [facility] Stop: 06/14/21 08:59 Last Admin: 05/22/21 08:53 Dose: 10 mg Documented by: Ondansetron HCl (Ondansetron Inj 2 Mg/Ml 2 Ml Vial) 4 mg IV Q6H PRN PRN Reason: Nausea Stop: 06/11/21 05:19 Last Admin: 05/14/21 03:10 Dose: 4 mg Documented by: PG Care Time/CCT Total # of Minutes Spent Total Time Spent with Patient: Total time spent is greater than 50% in coordination of care (as documented) at patient's floor/unit and/or counseling patient: Coding Level of Care Code 52826 Subseq Hosp Care Lvl 2 Diagnoses Pneumonia due to COVID-19 virus U07.1; J12.82 Acute respiratory failure with hypoxia J96.01 Hypertension I10 Headache R51.9
[2021-05-22] MEDS ORDERED: OPTIRAY 320 125ml IV ONE (15:11)
--- NOTE | 2021-05-22 15:30 | CT Scan Report ---
CT angio chest PE protocol CLINICAL HISTORY: PE Covid pneumonia TECHNIQUE: Multidetector row helical CT of the chest was performed. Coronal and sagittal reformations were obtained. Automated dose lowering techniques and/or adjustment according to patient size were u tilized for this exam. Comparison: None available at the time of this dictation. FINDINGS: Lungs and pleura: Diffuse reticular opacities are seen compatible with Covid pneumonia. Bronchial wal l thickening is seen. Heart and pericardium: Heart size is normal. No pericardial effusion. Vessels: No evidence of pulmonary embolism. Mediastinum and manfred: Unremarkable. Chest wall and lower neck: Unremarkable. Abdomen: Unremarkable. Bones: Degenerative changes in the thoracic spine. IMPRESSION: 1. No evidence of pulmonary embolism. 2. Diffuse reticular opacities compatible with changes of Covid pneumonia. ACT 112: Negative or not required by law. Electronically signed by: Casper Byers M.D. 05/22/2021 3:29 PM
[2021-05-22] MEDS: CALCIUM CARBONATE 500 MG CHEWABLE TAB PO PRN (22:53)
[2021-05-23 06:56] LABS: Creatinine Clr Calc Pharmacy 135.5 ml/min; Est GFR (Non-African American) 109.6 ml/min
--- NOTE | 2021-05-23 08:27 | Hospitalist Progress Note ---
Date of Service May 23, 2021 Assessment & Plan (1) Pneumonia due to COVID-19 virus: Plan: Pneumonia due to COVID-19 virus with hypoxia/acute respiratory failure with hypoxia- dexamethasone treatment day 11 increased dexamethasone to 20mg IV daily on 05/17 now decrease to 10mg IV x 5 days Remdesivir IV per protocol, completed on 05/15 CRP is < 1 on 05/19 was not a candidate for baricitinib because his CRP was never > 7.5 continue Lasix 20mg IV qAM, making urine he is compliant with laying prone at night, needs to be prone as much as possible down to 6L wall high flow, off of Vapotherm discussed that once he is down to 2-3L at rest we can talk about discharge due to sinus tachycardia, checked CTA chest (05/22), no signs of PE (2) Acute respiratory failure with hypoxia: Plan: improved to 17L today Lasix 20mg IV daily for negative fluid balance lay prone as much as possible, he is compliant (3) Hypertension: Plan: continue lisinopril (4) Headache: Plan: no relief with Imitrex can try Toradol PRN Admission and Anticipated Discharge Date Admission Date: May 12, 2021 Subjective patient feels a lot better, he is down to 6L, breathing easier no chest pain or pressure, he has been on Lovenox 50 q12 CTA negative for PE, shows bilateral ground glass opacities eating well, making urine with Lasix Review of Systems Review of Systems: Moderate distress and fatigue no headache, no visual changes no speech or swallowing issues no chest pain, pressure or palpitations Continue shortness of breath, nonproductive cough or wheezes no abdominal pain, nausea or vomiting, no diarrhea no dysuria, hematuria or frequency no focal joint pain or swelling no back pain, CVA tenderness or radicular pain no bruising, bleeding or rashes no focal signs of weakness or numbness or altered sensation no complaints of anxiety or depression.. Physical Exam Physical Exam: The patient appeared mild to moderate respiratory distress Vital signs as documented. Head exam is normocephalic atraumatic Neck is without JVD, thyromegaly, or carotid bruits. Lungs are coarse bilaterally in all lung martin tachypnea Cardiac exam, Rhythm is regular.. No murmurs, rubs or gallops. Abdominal exam reveals normal bowel sounds, soft non tender, no masses Extremities are nonedematous and both pedal pulses are present Neurologic exam is alert and oriented, no focal loss of strength or sensation Skin is without bruises or rashes Psychologically is without concerns for anxiety or depression.. Results & Data Results & Data ([facility]) Vital Signs (Past 12 Hours) Vital Signs Temp Pulse Pulse Resp BP BP Pulse Ox 05/23/21 08:07 98.2 F 90 20 120/76 90 05/23/21 03:53 98.2 F 90 18 131/88 94 05/23/21 02:16 112 H 05/22/21 23:31 97.5 F L 92 H 20 117/70 97 PG Care Time/CCT Total # of Minutes Spent Total Time Spent with Patient: Total time spent is greater than 50% in coordination of care (as documented) at patient's floor/unit and/or counseling patient: Coding Level of Care Code 60179 Subseq Hosp Care Lvl 2 Diagnoses Pneumonia due to COVID-19 virus U07.1; J12.82 Acute respiratory failure with hypoxia J96.01 Hypertension I10 Headache R51.9
[2021-05-23] MEDS: ENOXAPARIN INJ 60 MG/0.6 ML SYR SQ SCH ×2 (09:06→21:40)
[2021-05-23] MEDS: dexAMETHasone 10 MG in SYRINGE 0 ML IV SCH (09:06)
[2021-05-23] MEDS: FUROSEMIDE INJ 20 MG/2 ML VIAL IV SCH (09:07)
[2021-05-23] MEDS: lisinopril 10 MG TAB PO SCH (09:07)
[2021-05-23] MEDS ORDERED: KETOROLAC TROMETHAMINE 15 MG/ML VIAL IV PRN (14:58)
[2021-05-23] MEDS: CALCIUM CARBONATE 500 MG CHEWABLE TAB PO PRN (16:03)
[2021-05-23] MEDS: QUEtiapine FUMARATE 25 MG TABLET PO SCH (21:39)
[2021-05-24] MEDS: FUROSEMIDE INJ 20 MG/2 ML VIAL IV SCH (09:06)
[2021-05-24] MEDS: ENOXAPARIN INJ 60 MG/0.6 ML SYR SQ SCH ×2 (09:06→22:18)
[2021-05-24] MEDS: dexAMETHasone 10 MG in SYRINGE 0 ML IV SCH (09:07)
[2021-05-24] MEDS: lisinopril 10 MG TAB PO SCH (09:07)
--- NOTE | 2021-05-24 18:32 | Hospitalist Progress Note ---
Date of Service May 24, 2021 Assessment & Plan (1) Pneumonia due to COVID-19 virus: Plan: Pneumonia due to COVID-19 virus with hypoxia/acute respiratory failure with hypoxia- dexamethasone treatment day 11 increased dexamethasone to 20mg IV daily on 05/17 now decrease to 10mg IV x 5 days Remdesivir IV per protocol, completed on 05/15 CRP is < 1 on 05/19 was not a candidate for baricitinib because his CRP was never > 7.5 continue Lasix 20mg IV qAM, making urine he is compliant with laying prone at night, needs to be prone as much as possible down to 6L wall high flow, off of Vapotherm discussed that once he is down to 2-3L at rest we can talk about discharge due to sinus tachycardia, checked CTA chest (05/22), no signs of PE (2) Acute respiratory failure with hypoxia: Plan: improved to 6L today Lasix 20mg IV daily for negative fluid balance lay prone as much as possible, he is compliant (3) Hypertension: Plan: continue lisinopril (4) Headache: Plan: no relief with Imitrex can try Toradol PRN Admission and Anticipated Discharge Date Admission Date: May 12, 2021 Subjective patient continues to improve, oxygen is down to 6L, breathing easier no chest pain or pressure, CTA negative for PE, shows bilateral ground glass opacities eating well, making urine with Lasix Review of Systems Review of Systems: Moderate distress and fatigue no headache, no visual changes no speech or swallowing issues no chest pain, pressure or palpitations Continue shortness of breath, nonproductive cough or wheezes no abdominal pain, nausea or vomiting, no diarrhea no dysuria, hematuria or frequency no focal joint pain or swelling no back pain, CVA tenderness or radicular pain no bruising, bleeding or rashes no focal signs of weakness or numbness or altered sensation no complaints of anxiety or depression.. Physical Exam Physical Exam: The patient appeared mild to moderate respiratory distress Vital signs as documented. Head exam is normocephalic atraumatic Neck is without JVD, thyromegaly, or carotid bruits. Lungs are coarse bilaterally in all lung martin tachypnea Cardiac exam, Rhythm is regular.. No murmurs, rubs or gallops. Abdominal exam reveals normal bowel sounds, soft non tender, no masses Extremities are nonedematous and both pedal pulses are present Neurologic exam is alert and oriented, no focal loss of strength or sensation Skin is without bruises or rashes Psychologically is without concerns for anxiety or depression.. Results & Data Results & Data ([facility]) Vital Signs (Past 12 Hours) Vital Signs Temp Pulse Pulse Resp BP Pulse Ox 05/24/21 16:40 98.6 F 117 H 20 124/74 95 05/24/21 12:25 97.9 F 93 H 18 122/67 94 05/24/21 12:22 92 05/24/21 08:04 98.1 F 63 20 136/89 95 05/24/21 07:43 78 PG Care Time/CCT Total # of Minutes Spent Total Time Spent with Patient: Total time spent is greater than 50% in coordination of care (as documented) at patient's floor/unit and/or counseling patient: Coding Level of Care Code 89847 Subseq Hosp Care Lvl 2 Diagnoses Pneumonia due to COVID-19 virus U07.1; J12.82 Acute respiratory failure with hypoxia J96.01 Hypertension I10 Headache R51.9
[2021-05-24] MEDS: QUEtiapine FUMARATE 25 MG TABLET PO SCH (22:18)
[2021-05-25] MEDS: dexAMETHasone 10 MG in SYRINGE 0 ML IV SCH (08:14)
[2021-05-25] MEDS: lisinopril 10 MG TAB PO SCH (08:14)
[2021-05-25] MEDS: FUROSEMIDE INJ 20 MG/2 ML VIAL IV SCH (08:14)
[2021-05-25] MEDS: ENOXAPARIN INJ 60 MG/0.6 ML SYR SQ SCH ×2 (08:15→20:31)
--- NOTE | 2021-05-25 20:00 | Hospitalist Progress Note ---
Date of Service May 25, 2021 Assessment & Plan (1) Pneumonia due to COVID-19 virus: Plan: Pneumonia due to COVID-19 virus with hypoxia/acute respiratory failure with hypoxia- dexamethasone treatment day 11 increased dexamethasone to 20mg IV daily on 05/17 now decrease to 10mg IV x 5 days Remdesivir IV per protocol, completed on 05/15 CRP is < 1 on 05/19 was not a candidate for baricitinib because his CRP was never > 7.5 continue Lasix 20mg IV qAM, making urine he is compliant with laying prone at night, needs to be prone as much as possible down to 4L wall high flow, discussed that once he is down to 2-3L at rest we can talk about discharge due to sinus tachycardia, checked CTA chest (05/22), no signs of PE (2) Acute respiratory failure with hypoxia: Plan: improved to 4L today Lasix 20mg IV daily for negative fluid balance lay prone as much as possible, he is compliant (3) Hypertension: Plan: continue lisinopril (4) Headache: Plan: no relief with Imitrex can try Toradol PRN Admission and Anticipated Discharge Date Admission Date: May 12, 2021 Subjective patient continues to improve, oxygen is down to 4L, breathing easier no chest pain or pressure, CTA negative for PE, shows bilateral ground glass opacities eating well, making urine with Lasix Review of Systems Review of Systems: Moderate distress and fatigue no headache, no visual changes no speech or swallowing issues no chest pain, pressure or palpitations Continue shortness of breath, nonproductive cough or wheezes no abdominal pain, nausea or vomiting, no diarrhea no dysuria, hematuria or frequency no focal joint pain or swelling no back pain, CVA tenderness or radicular pain no bruising, bleeding or rashes no focal signs of weakness or numbness or altered sensation no complaints of anxiety or depression.. Physical Exam Physical Exam: The patient appeared mild to moderate respiratory distress Vital signs as documented. Head exam is normocephalic atraumatic Neck is without JVD, thyromegaly, or carotid bruits. Lungs are coarse bilaterally in all lung martin tachypnea Cardiac exam, Rhythm is regular.. No murmurs, rubs or gallops. Abdominal exam reveals normal bowel sounds, soft non tender, no masses Extremities are nonedematous and both pedal pulses are present Neurologic exam is alert and oriented, no focal loss of strength or sensation Skin is without bruises or rashes Psychologically is without concerns for anxiety or depression.. Results & Data Results & Data ([facility]) Vital Signs (Past 12 Hours) Vital Signs Temp Pulse Pulse Pulse Resp BP BP 05/25/21 19:29 97.7 F 110 H 16 133/66 05/25/21 16:46 114 H 05/25/21 15:23 98.4 F 128 H 22 138/84 05/25/21 11:57 98.1 F 109 H 20 118/84 Pulse Ox 05/25/21 19:29 94 05/25/21 16:46 05/25/21 15:23 93 05/25/21 11:57 94 PG Care Time/CCT Total # of Minutes Spent Total Time Spent with Patient: Total time spent is greater than 50% in coordination of care (as documented) at patient's floor/unit and/or counseling patient: Coding Level of Care Code 58581 Subseq Hosp Care Lvl 2 Diagnoses Pneumonia due to COVID-19 virus U07.1; J12.82 Acute respiratory failure with hypoxia J96.01 Hypertension I10 Headache R51.9
[2021-05-25] MEDS: QUEtiapine FUMARATE 25 MG TABLET PO SCH (20:31)
[2021-05-26] MEDS: dexAMETHasone 10 MG in SYRINGE 0 ML IV SCH (09:02)
[2021-05-26] MEDS: ENOXAPARIN INJ 60 MG/0.6 ML SYR SQ SCH ×2 (09:03→21:17)
[2021-05-26] MEDS: lisinopril 10 MG TAB PO SCH (09:03)
[2021-05-26] MEDS: FUROSEMIDE INJ 20 MG/2 ML VIAL IV SCH (09:03)
[2021-05-26 09:14] LABS: Creatinine Clr Calc Pharmacy 119.5 ml/min; Est GFR (African American) 120.2 ml/min; Est GFR (Non-African American) 103.7 ml/min
--- NOTE | 2021-05-26 18:28 | Hospitalist Progress Note ---
Date of Service May 26, 2021 Assessment & Plan (1) Pneumonia due to COVID-19 virus: Plan: Pneumonia due to COVID-19 virus with hypoxia/acute respiratory failure with hypoxia- dexamethasone treatment day 11 increased dexamethasone to 20mg IV daily on 05/17 now decrease to 10mg IV x 5 days Remdesivir IV per protocol, completed on 05/15 CRP is < 1 on 05/19 was not a candidate for baricitinib because his CRP was never > 7.5 continue Lasix 20mg IV qAM, making urine he is compliant with laying prone at night, needs to be prone as much as possible down to 4L wall high flow, discussed that once he is down to 2-3L at rest we can talk about discharge due to sinus tachycardia, checked CTA chest (05/22), no signs of PE (2) Acute respiratory failure with hypoxia: Plan: improved to 4L today Lasix 20mg IV daily for negative fluid balance lay prone as much as possible, he is compliant (3) Hypertension: Plan: continue lisinopril (4) Headache: Plan: no relief with Imitrex can try Toradol PRN Admission and Anticipated Discharge Date Admission Date: May 12, 2021 Subjective patient continues to improve, oxygen is down to 4L, breathing easier no chest pain or pressure, CTA negative for PE, shows bilateral ground glass opacities eating well, making urine with Lasix, is tachycardic with exertion. tolerate saturations around 90"s Review of Systems Review of Systems: Moderate distress and fatigue no headache, no visual changes no speech or swallowing issues no chest pain, pressure or palpitations Continue shortness of breath, nonproductive cough or wheezes no abdominal pain, nausea or vomiting, no diarrhea no dysuria, hematuria or frequency no focal joint pain or swelling no back pain, CVA tenderness or radicular pain no bruising, bleeding or rashes no focal signs of weakness or numbness or altered sensation no complaints of anxiety or depression.. Physical Exam Physical Exam: The patient appeared mild to moderate respiratory distress Vital signs as documented. Head exam is normocephalic atraumatic Neck is without JVD, thyromegaly, or carotid bruits. Lungs are coarse bilaterally in all lung martin tachypnea Cardiac exam, Rhythm is regular.. No murmurs, rubs or gallops. Abdominal exam reveals normal bowel sounds, soft non tender, no masses Extremities are nonedematous and both pedal pulses are present Neurologic exam is alert and oriented, no focal loss of strength or sensation Skin is without bruises or rashes Psychologically is without concerns for anxiety or depression.. Results & Data Results & Data ([facility]) Vital Signs (Past 12 Hours) Vital Signs Temp Pulse Pulse Resp BP BP Pulse Ox 05/26/21 17:37 121 H 94 05/26/21 16:17 98.4 F 139 H 18 147/83 H 91 05/26/21 09:33 122 H 95 05/26/21 09:01 99 H 94 05/26/21 08:30 98.1 F 139 H 18 148/93 H 94 PG Care Time/CCT Total # of Minutes Spent Total Time Spent with Patient: Total time spent is greater than 50% in coordination of care (as documented) at patient's floor/unit and/or counseling patient: Coding Level of Care Code 08606 Subseq Hosp Care Lvl 2 Diagnoses Pneumonia due to COVID-19 virus U07.1; J12.82 Acute respiratory failure with hypoxia J96.01 Hypertension I10 Headache R51.9
[2021-05-26] MEDS: QUEtiapine FUMARATE 25 MG TABLET PO SCH (21:17)
[2021-05-27] MEDS: dexAMETHasone 10 MG in SYRINGE 0 ML IV SCH (09:22)
[2021-05-27] MEDS: FUROSEMIDE INJ 20 MG/2 ML VIAL IV SCH (09:23)
[2021-05-27] MEDS: ENOXAPARIN INJ 60 MG/0.6 ML SYR SQ SCH (09:23)
[2021-05-27] MEDS: lisinopril 10 MG TAB PO SCH (09:24)
--- NOTE | 2021-05-27 18:55 | Discharge Summary ---
Date of Service May 27, 2021 Admission HPI Per Admitting Provider The patient is a 46-year-old male with a past medical history including hypertension, who presents to the emergency department with symptoms as noted above. His symptoms initially again on May 04. Chest x-ray is consistent with multifocal pneumonia abnormal laboratories: AST 122, platelets 146, glucose 145. Temperature 39.1 Chest x-ray consistent with multifocal pneumonia From the ED patient received the following: Dexamethasone 6 mg IV, Tylenol 1 g p.o. Principal Diagnosis acute respiratory failure secondary to covid pneumonia Discharge Exam The patient appeared well Vital signs as documented. Lungs are clear to auscultation and appear unlabored Cardiac exam, Rhythm is regular.. No murmurs, rubs or gallops. Abdominal exam reveals normal bowel sounds, soft non tender, no masses Extremities are nonedematous and both pedal pulses are normal. Neurologic exam is alert and oriented, no focal loss of strength or sensation Skin is without bruises or rashes Psychologically is without concerns for anxiety or depression. Discharge Data Allergies Allergy/AdvReac Type Severity Reaction Status Date / Time codeine Allergy Hives Verified 05/12/21 00:48 oxycodone Allergy Hives Verified 05/12/21 00:48 Consultations 05/12/21 00:36 ED Decision to Admit Stat 05/13/21 12:27 Consult Pulmonology Routine Ordered Studies 05/22/21 13:30 CT angio chest PE protocol Stat Hospital Course (1) Pneumonia due to COVID-19 virus: Pneumonia due to COVID-19 virus with hypoxia/acute respiratory failure with hypoxia- dexamethasone treatment day 11 increased dexamethasone to 20mg IV daily on 05/17 now decrease to 10mg IV x 5 days Remdesivir IV per protocol, completed on 05/15 CRP is < 1 on 05/19 was not a candidate for baricitinib because his CRP was never > 7.5 continue Lasix 20mg IV qAM, making urine he is compliant with laying prone at night, needs to be prone as much as possible down to 2 L at rest 3 L with exertion home oxygen arranged due to sinus tachycardia, checked CTA chest (05/22), no signs of PE (2) Acute respiratory failure with hypoxia: improved discharge home Continue to encourage patient to lay prone as much as possible, he is compliant (3) Hypertension: continue lisinopril (4) Headache: Resolved Total Time Total Time Spent Total Time Spent (In Minutes): It required greater than 30 minutes to prepare this patient for discharge Discharge Plan Discharge Items Patient Disposition: Home - Self-Care Reason For Visit: COVID-19 PNEUMONIA W/ HYPOXIA, ACUTE RESP FAILURE Discharge Diagnosis: acute respiratory failure covid pneumonia Condition on Discharge: Fair Activity: Per Instructions section Activity Comment: off owrk until 06/27/21 should be released to return by primary care Non-emergency contact: Primary Care Provider Call non-emergency contact if: you have any medication questions, your symptoms worsen and you have a fever Follow-up/Referrals: Osvaldo Flores MD [Outside Practitioners] - 06/15/21 10:30 am (VIRTUAL VISIT THROUGH [facility]PT WITH EDUIN COY PA-C; DUE TO +COVID DX) Diet: Regular Addtl Attending Provider Instructions: You have been diagnosed with covid infection, it would be recommended that you quarantine yourself for 10 days from your first test or first symptoms, and if at the 10th day you have no symptoms the you can come off quarantine but use common sense precautions. Quarantine means attempting to stay away from people who have not had an active covid infection in the past, and if you have to be around others to wear a mask even if you are indoors, do not share a room to s leep in with others until you are out of quarantine. If you still have symptoms at the 10th day, continue to quarantine until you are symptom free for 48 hours You should be off work until June 27, 2021 would also recommend that you see your primary care provider in the interim to be released back to return to work Pending Studies at Discharge: No Stand-Alone Forms: My [facility] [address], Work/School Release, Smoking Cessation Medications and DC Order Prescriptions: New (DME) Oxygen Home Liters Per Minute See Rx Instructions .ROUTE Qty: 2 RF: 0 Continued lisinopril 10 mg tablet 10 mg PO DAILY RF: 0 ibuprofen 200 mg Tablet 800 mg PO Q8 PRN (Reason: Fever Or Pain) RF: 0 Discharge Orders: Discharge Order (Routine); Ordered 05/27/21 Ordered By: Aiden Slaughter Admission Data Admit Date/Time: 05/12/21 01:18 Attending Provider: Aiden Slaughter Admit Provider: Marco A Kemp Primary Care Provider: PCP,NO Other Providers: Marco A Kemp ; Oswaldo Hill Other Interventions: Discharge Summary Assessment (RN) Last Done: 05/27/21 16:30 Coding Level of Care Code D/C DAY MANAGEMENT >30 MINS Diagnoses Pneumonia due to COVID-19 virus U07.1; J12.82 Acute respiratory failure with hypoxia J96.01 Hypertension I10 Headache R51.9
== END 2021-05-27 16:31 | disposition home or self-care (01) | DRG 177 ==
LOC: ED 23:17 → SUATTDRO 05-12 01:18 → 2S 05-12 01:18 → 3E 05-25 23:36